=== PATIENT | male | born 1960 | race Caucasian/White ===

== ENCOUNTER 2018-11-05 13:22 | Inpatient (IN) | payer OTHER ==
[2018-11-05] VITALS (10 sets, daily range): BP systolic 98–126; BP diastolic 70–81; PULSE 68–85; RESP 13–20; Ht 182.9 cm; Wt 113.6 kg
[~2018-11-05] VITALS: Ht 182.9 cm; Wt 113.6 kg
[~2018-11-05 13:22] MED LIST: ASPI-903 PO; ATOR20TA38 PO; BENA5TAB33 PO; CLOP75TA27 PO; ERGO500014 PO; ESOM20CA PO; LORA-441 PO; METO-407 PO; OMEP20CA16 PO; TERA5CAP3 PO
[2018-11-05] MEDS ORDERED: NITROGLYCERIN 2% 1 GM OINT PKT TD STA (13:26)
[2018-11-05] MEDS ORDERED: NITROGLYCERIN (SL) 0.4 MG TAB SL PRN ×2 (13:30→15:00)
[2018-11-05] MEDS ORDERED: HEPARIN 1000 UNITS/ML 10 ML INJ IV STA (13:30)
[2018-11-05] MEDS ORDERED: IODIXANOL LOCM 100 ML BTL ONE (13:40)
[2018-11-05] MEDS ORDERED: IOHEXOL 350MG/ML 50 ML BTL ONE (13:40)
[2018-11-05] MEDS ORDERED: HEPARIN 1000 UNITS/ML 10 ML INJ ONE (13:40)
[2018-11-05] MEDS ORDERED: LIDOCAINE 1% (MDV) 20 ML INJ ONE (13:40)
[2018-11-05] MEDS ORDERED: MIDAZOLAM 1 MG/ML 2 ML INJ ONE (13:41)
[2018-11-05] MEDS ORDERED: FENTAnyl 50 MCG/ML VIAL ONE (13:41)
[2018-11-05] MEDS ORDERED: VERAPAMIL 5 MG INJ ONE ×2 (13:41→13:51)
[2018-11-05] MEDS ORDERED: NITROGLYCERIN (IC) 100 MCG/ML INJ ONE (13:41)
--- NOTE | 2018-11-05 13:52 | CONS ---
Consultation Date/Type/Reason Admit Date/Time Date of Consultation: Nov 05, 2018 Type of Consult Cardiology Reason for Consultation vt cardiac arrest Requesting Provider: NEIL MILLER MD Date/Time of Note DATE: 11/05/18 TIME: 13:51 Hx of Present Illness Patient presented with V. tach cardiac arrest. Successfully cardioverted. Patient has had complaint of chest pain prior to the event. Patient continues to have chest pain has severe urinary artery disease. Plan for emergent left heart catheter and coronary angiography possible percutaneous core intervention. His pain is nontender pressure discussed with the patient and multiple family members at detail. Risks including but not limited to risk of infection vascular complication bleeding, leakage MD stroke arrhythmia renal failure etc. discussed with him. Consent has been obtained Full note after procedure Past Medical History Home Meds Reported Medications Lorazepam* (Lorazepam*) 0.5 Mg Tablet, 0.5 MG PO NEEDED, TAB 11/05/18 Ergocalciferol (Vitamin D2) (VITAMIN D2) 50,000 Unit Capsule, 91719 UNIT PO Q15 D, CAP LAST TAKEN 10/24/18 11/05/18 Clopidogrel Bisulfate* (Clopidogrel Bisulfate*) 75 Mg Tablet, 75 MG PO DAILY, #30 TAB 11/05/18 Benazepril Hcl* (Benazepril Hcl*) 20 Mg Tablet, 20 MG PO DAILY, #30 TAB 11/05/18 Tamsulosin Hcl* (Flomax*) 0.4 Mg Cap.er.24h, 0.4 MG PO DAILY, CAP 11/05/18 Atorvastatin Calcium* (Atorvastatin Calcium*) 20 Mg Tablet, 20 MG PO QHS, #30 TAB 11/05/18 Metoprolol Tartrate* (Lopressor*) 100 Mg Tablet, 100 MG PO BID, #60 TAB 11/05/18 Zolpidem Tartrate* (Ambien*) 5 Mg Tablet, 5 MG PO QHS PRN for NEEDED, #30 TAB 11/05/18 Dexlansoprazole (Dexilant) 30 Mg Cap., 30 MG PO NEEDED, #30 CAP 11/05/18 Aspirin* (Aspirin* EC) 81 Mg Tablet., 81 MG PO DAILY, TAB 11/05/18 Discontinued Reported Medications Metoprolol Tartrate* (Lopressor*) 100 Mg Tablet, 100 MG PO BID, TAB 05/07/15 Ergocalciferol* (Drisdol* (Vitamin D2)) 50,000 Unit Capsule, 32641 UNIT PO Q14 DAYS, CAP 05/07/15 Esomeprazole Mag Trihydrate (Nexium) 20 Mg Capsule.dr, 20 MG PO DAILY, CAP 05/07/15 Omeprazole* (Omeprazole*) 20 Mg Capsule.dr, 20 MG PO DAILY, CAP 05/07/15 Lorazepam* (Ativan*) 0.5 Mg Tablet, 0.5 MG PO HS PRN for ANXIETY, TAB 05/07/15 Terazosin Hcl* (Terazosin Hcl*) 5 Mg Capsule, 5 MG PO HS, CAP 04/01/15 Benazepril Hcl* (Benazepril Hcl*) 5 Mg Tablet, 5 MG PO DAILY, TAB 04/01/15 Aspirin* (Aspirin* Chew) 81 Mg Tab.chew, 81 MG PO DAILY, TAB.CHEW 04/01/15 Discontinued Scripts Atorvastatin Calcium* (Atorvastatin Calcium*) 20 Mg Tab, 40 MG PO DAILY@21 for 30 Days, 3 Refills Prov:Jonnie London DO 05/08/15 Clopidogrel Bisulfate (Clopidogrel) 75 Mg Tab, 75 MG PO DAILY, #30 CAP 1 Refill Prov:Jonnie London DO 04/02/15 Medications Current Medications Nitroglycerin (Nitroglycerin (Sl Tab) 0.4 Mg) 1 tab Q5M UP TO 3 DOSES PRN SL .CHEST PAIN; Start 11/05/18 at 13:30 Allergies: Coded Allergies: No Known Allergy (Unverified , 11/05/18) Social History Smoking Status: Former smoker Exam/Review of Systems Vital Signs Vitals Vital Signs Date Temp Pulse Resp B/P (MAP) Pulse Ox O2 O2 Flow FiO2 Time Delivery Rate 11/05/18 Nasal 2 13:25 Cannula 11/05/18 98.7 104 20 118/71 100 13:25 (87) Labs Result Diagram: 11/05/18 1325 Results 24hrs Laboratory Tests Test 11/05/18 13:25 White Blood Count 8.7 Red Blood Count 4.66 L Hemoglobin 13.1 L Hematocrit 40.7 L Mean Corpuscular Volume 87.3 Mean Corpuscular Hemoglobin 28.1 L Mean Corpuscular Hemoglobin Concent 32.2 Red Cell Distribution Width 13.2 Platelet Count 195 Mean Platelet Volume 10.9 H Immature Granulocytes % 0.100 Neutrophils % 77.2 H Lymphocytes % 17.7 Monocytes % 4.0 Eosinophils % 0.7 Basophils % 0.3 Nucleated Red Blood Cells % 0.0 Immature Granulocytes # 0.010 Neutrophils # 6.7 Lymphocytes # 1.5 Monocytes # 0.4 Eosinophils # 0.1 Basophils # 0.0 Nucleated Red Blood Cells # 0.0 Medications Medications Current Medications Nitroglycerin (Nitroglycerin (Sl Tab) 0.4 Mg) 1 tab Q5M UP TO 3 DOSES PRN SL .CHEST PAIN; Start 11/05/18 at 13:30 TRUDY BENITEZ MD Nov 05, 2018 13:52
[2018-11-05] MEDS ORDERED: ASPI-817 PO (13:56)
[2018-11-05] MEDS ORDERED: DEXL30CA2 PO (13:56)
[2018-11-05] MEDS ORDERED: ZOLP5TAB PO (13:57)
[2018-11-05] MEDS ORDERED: ATOR20TA38 PO (13:58)
[2018-11-05] MEDS ORDERED: METO-407 PO (13:58)
[2018-11-05] MEDS ORDERED: BENA20TA4 PO (13:59)
[2018-11-05] MEDS ORDERED: TAMS-14 PO (13:59)
[2018-11-05] MEDS ORDERED: CLOP75TA19 PO (14:00)
[2018-11-05] MEDS ORDERED: ERGO500013 PO (14:02)
[2018-11-05] MEDS ORDERED: LORA0.5T PO (14:05)
[2018-11-05] MEDS ORDERED: BIVALIRUDIN 250MG /NS 50 ML 50 ML IVPB ONE (14:16)
--- NOTE | 2018-11-05 14:28 | ERD ---
ER Documentation Chief Complaint Chief Complaint CP & SOB; BIBA WITH EKG READING STEMI HPI Patient is a 58-year-old male with coronary disease and hypertension who presents with chest pain. The patient was brought in by ambulance. Per the paramedics he had SVT in the field and was given 6 mg and then 12 mg of adenosine which did not convert his SVT. They then shocked him at 50 J in the 100 J which did convert into a sinus rhythm. Post diversion EKG showed STEMI from the field. He said the chest pain started 30 to 40 minutes ago. He has midsternal chest pain. He was given aspirin and nitroglycerin by paramedics. His primary doctor Dr. Padilla and his rack puncher is Dr. Heath. ROS All systems reviewed and are negative except as per history of present illness. Medications Home Meds Reported Medications Lorazepam* (Lorazepam*) 0.5 Mg Tablet, 0.5 MG PO NEEDED, TAB 11/05/18 Ergocalciferol (Vitamin D2) (VITAMIN D2) 50,000 Unit Capsule, 57257 UNIT PO Q15 D, CAP LAST TAKEN 10/24/18 11/05/18 Clopidogrel Bisulfate* (Clopidogrel Bisulfate*) 75 Mg Tablet, 75 MG PO DAILY, #30 TAB 11/05/18 Benazepril Hcl* (Benazepril Hcl*) 20 Mg Tablet, 20 MG PO DAILY, #30 TAB 11/05/18 Tamsulosin Hcl* (Flomax*) 0.4 Mg Cap.er.24h, 0.4 MG PO DAILY, CAP 11/05/18 Atorvastatin Calcium* (Atorvastatin Calcium*) 20 Mg Tablet, 20 MG PO QHS, #30 TAB 11/05/18 Metoprolol Tartrate* (Lopressor*) 100 Mg Tablet, 100 MG PO BID, #60 TAB 11/05/18 Zolpidem Tartrate* (Ambien*) 5 Mg Tablet, 5 MG PO QHS PRN for NEEDED, #30 TAB 11/05/18 Dexlansoprazole (Dexilant) 30 Mg Cap., 30 MG PO NEEDED, #30 CAP 11/05/18 Aspirin* (Aspirin* EC) 81 Mg Tablet.dr, 81 MG PO DAILY, TAB 11/05/18 Discontinued Reported Medications Metoprolol Tartrate* (Lopressor*) 100 Mg Tablet, 100 MG PO BID, TAB 05/07/15 Ergocalciferol* (Drisdol* (Vitamin D2)) 50,000 Unit Capsule, 61573 UNIT PO Q14 DAYS, CAP 05/07/15 Esomeprazole Mag Trihydrate (Nexium) 20 Mg Capsule.dr, 20 MG PO DAILY, CAP 05/07/15 Omeprazole* (Omeprazole*) 20 Mg Capsule.dr, 20 MG PO DAILY, CAP 05/07/15 Lorazepam* (Ativan*) 0.5 Mg Tablet, 0.5 MG PO HS PRN for ANXIETY, TAB 05/07/15 Terazosin Hcl* (Terazosin Hcl*) 5 Mg Capsule, 5 MG PO HS, CAP 04/01/15 Benazepril Hcl* (Benazepril Hcl*) 5 Mg Tablet, 5 MG PO DAILY, TAB 04/01/15 Aspirin* (Aspirin* Chew) 81 Mg Tab.chew, 81 MG PO DAILY, TAB.CHEW 04/01/15 Discontinued Scripts Atorvastatin Calcium* (Atorvastatin Calcium*) 20 Mg Tab, 40 MG PO DAILY@21 for 30 Days, 3 Refills Prov:Jonnie London DO 05/08/15 Clopidogrel Bisulfate (Clopidogrel) 75 Mg Tab, 75 MG PO DAILY, #30 CAP 1 Refill Prov:Jonnie London DO 04/02/15 Allergies Allergies: Coded Allergies: No Known Allergy (Unverified , 11/05/18) PMhx/Soc History of Surgery: Yes (STENT PLACEMENT 2010, 2014 ) Anesthesia Reaction: No Hx Neurological Disorder: No Hx Respiratory Disorders: No Hx Cardiac Disorders: Yes (PA 2010, HTN, HIGH CHOLESTEROL) Hx Psychiatric Problems: No Hx Miscellaneous Medical Probl: No Hx Alcohol Use: Yes (OCCASIONAL) Hx Substance Use: No Hx Tobacco Use: No Smoking Status: Former smoker FmHx Family History: coronary disease Physical Exam Vitals Vital Signs Date Temp Pulse Resp B/P (MAP) Pulse Ox O2 O2 Flow FiO2 Time Delivery Rate 11/05/18 Nasal 2 13:25 Cannula 11/05/18 Nasal 2.0 13:25 Cannula 11/05/18 98.7 104 20 118/71 100 13:25 (87) Physical Exam Const: Moderate distress Head: Atraumatic Eyes: Normal Conjunctiva ENT: Normal External Ears, Nose and Mouth. Neck: Full range of motion. No meningismus. Resp: Clear to auscultation bilaterally Cardio: Regular rate and rhythm, no murmurs Abd: Soft, non tender, non distended. Normal bowel sounds Skin: No petechiae or rashes Back: No midline or flank tenderness Ext: No cyanosis, or edema Neur: Awake and alert Psych: Normal Mood and Affect Result Diagram: 11/05/18 1325 11/05/18 1325 Results 24 hrs Laboratory Tests Test 11/05/18 13:25 White Blood Count 8.7 10^3/ul Red Blood Count 4.66 10^6/ul Hemoglobin 13.1 g/dl Hematocrit 40.7 % Mean Corpuscular Volume 87.3 fl Mean Corpuscular Hemoglobin 28.1 pg Mean Corpuscular Hemoglobin Concent 32.2 g/dl Red Cell Distribution Width 13.2 % Platelet Count 195 10^3/UL Mean Platelet Volume 10.9 fl Immature Granulocytes % 0.100 % Neutrophils % 77.2 % Lymphocytes % 17.7 % Monocytes % 4.0 % Eosinophils % 0.7 % Basophils % 0.3 % Nucleated Red Blood Cells % 0.0 /100WBC Immature Granulocytes # 0.010 10^3/ul Neutrophils # 6.7 10^3/ul Lymphocytes # 1.5 10^3/ul Monocytes # 0.4 10^3/ul Eosinophils # 0.1 10^3/ul Basophils # 0.0 10^3/ul Nucleated Red Blood Cells # 0.0 10^3/ul Sodium Level 141 mmol/L Potassium Level 3.5 mmol/L Chloride Level 107 mmol/L Carbon Dioxide Level 22 mmol/L Anion Gap 12 Blood Urea Nitrogen 12 mg/dl Creatinine 1.15 mg/dl Est Glomerular Filtrat Rate mL/min > 60 mL/min Glucose Level 152 mg/dl Calcium Level 9.6 mg/dl Troponin I < 0.012 ng/ml Current Medications Medications Dose Sig/Pérez Start Time Status Last (Trade) Ordered Route PRN Stop Time Admin Dose Reason Admin 1 inch ONCE STAT 11/05/18 DC 11/05/18 Nitroglycerin TD 13:26 13:37 11/05/18 13:27 (Nitroglyceri n 2% Oint) 1 tab Q5M UP TO 3 11/05/18 Nitroglycerin DOSES PRN 13:30 SL .CHEST (Nitroglyceri PAIN n (Sl Tab) 0.4 Mg) Heparin 5,000 unit ONCE STAT 11/05/18 DC 11/05/18 Sodium IV 13:30 13:48 (Porcine) 11/05/18 13:32 (Heparin (1000 Units/ml)) Heparin 10,000 unit STK-MED 11/05/18 DC Sodium ONCE .ROUTE 13:40 (Porcine) 11/05/18 13:41 (Heparin (1000 Units/ml)) Lidocaine 20 ml STK-MED 11/05/18 DC (Xylocaine ONCE .ROUTE 13:40 1% (Mdv) 20 11/05/18 13:41 ml) Iohexol 50 ml STK-MED 11/05/18 DC (Omnipaque ONCE .ROUTE 13:40 350mg/ ml) 11/05/18 13:41 Iodixanol 100 ml STK-MED 11/05/18 DC (Visipaque ONCE .ROUTE 13:40 Locm) 11/05/18 13:41 Heparin 1,500 ml @ STK-MED 11/05/18 DC Sodium/ ud ONCE .ROUTE 13:40 Sodium 11/05/18 13:41 Chloride Midazolam 2 mg STK-MED 11/05/18 DC HCl ONCE .ROUTE 13:41 (Versed) 11/05/18 13:42 Fentanyl 100 mcg STK-MED 11/05/18 DC (Sublimaze) ONCE .ROUTE 13:41 11/05/18 13:42 Verapamil 5 mg STK-MED 11/05/18 DC HCl ONCE .ROUTE 13:41 (Verapamil) 11/05/18 13:42 1,000 mcg STK-MED 11/05/18 DC Nitroglycerin ONCE .ROUTE 13:41 11/05/18 13:42 (Nitroglyceri n (Intracoronar y)) Verapamil 5 mg STK-MED 11/05/18 DC HCl ONCE .ROUTE 13:51 (Verapamil) 11/05/18 13:52 Bivalirudin 50 ml @ ud STK-MED 11/05/18 DC ONCE IVPB 14:16 11/05/18 14:17 Procedures/MDM EKG #1 read by me: Rate/Rhythm: Regular rate and rhythm at a normal rate Intervals: Normal Impression: Elevations across the anterior leads EKG #2 read by me: Rate/Rhythm: Regular rate and rhythm at a normal rate Intervals: Normal Impression: Elevations across the anterior leads X-ray shows cardiomegaly per radiology. Smoking Cessation Therapy: Pt. was lectured for greater than 3 minutes on the health risks of continued smoking and the benefits of cessation. Patient is a 58-year-old male with significant cardiac risk factors who presents as a STEMI. I looked at the and taxi instructor bus trolley EKGs and I believe with a recalling SVT was actually ventricular tachycardia which is why the adenosine did not work and why the cardioversion did work. For this reason I do believe the going directly to the cardiac Sheet Metal Worker Apprentice would be appropriate and a code STEMI was called. Post cardioversion EKG does show mild ST elevations across the anterior leads. The paramedics did not email the EKG so a code STEMI was not called until the patient arrived and I was able to review the EKGs. Here are the important times: 1315call from the field with possible STEMI 1319arrival and code STEMI called 1321Dr. Ronal called back and requested EKGs which I have sent him 1332Dr. Ronal called back and said that he will take the patient to the cardiac Sheet Metal Worker Apprentice [id number] cardiac Sheet Metal Worker Apprentice team arrival at this time 1344still awaiting the cardiac Sheet Metal Worker Apprentice team arrival 1354Cath Lab team is ready for the patient and patient was wheeled from the emergency department to the cardiac Sheet Metal Worker Apprentice Patient did receive aspirin and nitro glycerin by paramedics. I spoke with Dr. Padilla for admission to the intensive care unit following the cardiac cath by Dr. Villeda. Critical Care: Time: 35 minutes excluding all billable procedures. Treatments/Evaluations: Close monitoring and treatment of unstable vital signs, cardiorespiratory, and neurologic status, while maintaining tight balance of fluid, respiratory, and cardiac interventions. Departure Diagnosis: Primary Impression: STEMI (ST elevation myocardial infarction) Involved coronary artery: unspecified coronary artery Qualified Codes: I21.3 - ST elevation (STEMI) myocardial infarction of unspecified site Additional Impression: V-tach Condition: Critical DONNIE CASAS MD Nov 05, 2018 14:27
[2018-11-05] MEDS ORDERED: SOD CHLORIDE 0.9% 1,000 ML IV SCH (14:40)
[2018-11-05] MEDS ORDERED: POTASSIUM CHLORIDE (SR) 20 MEQ TAB PO STA (14:45)
[2018-11-05] MEDS ORDERED: MAGNESIUM SULFATE 2 GM/50 ML 50 ML IVPB ONE (15:00)
[2018-11-05] MEDS ORDERED: morphine 2 MG INJ IV PRN (15:00)
[2018-11-05] MEDS ORDERED: OXYCODONE/ACETAMINOPHEN (5/325) TAB PO PRN (15:00)
[2018-11-05] MEDS ORDERED: ACETAMINOPHEN 325 MG TAB PO PRN (15:00)
[2018-11-05] MEDS ORDERED: AMIODARONE 900 MG in DEXTROSE 5% 482 ML IV SCH (15:30)
[2018-11-05] MEDS ORDERED: AMIODARONE 150MG/D5W BOLUS 100 ML IV ONE (15:30)
--- NOTE | 2018-11-05 16:09 | CONS ---
Assessment/Plan Assessment/Plan Hospital Course (Demo Recall) 1. Symptomatic sustained ventricular tachycardia requiring emergent cardioversion 2. Coronary artery disease 3. Status post monotype keyboard operator: Trudy Villeda MD 4. History of PCI 5. Diabetes 6. Dyslipidemia 7. Likely obstructive sleep apnea 8. Obesity 9. Severe ischemic cardiomyopathy Recommendations: We will continue with the aspirin I will start the patient amiodarone drip overnight. Continue with TESSA inhibitor We will switch the metoprolol to carvedilol given his LV dysfunction Echocardiogram will be repeated Statin will be continued Cardiac enzymes will be repeated We will continue to closely monitor in the ICU at least overnight Extra potassium will be given. Magnesium will be given as well empirically Patient would need to have an ICD prior to the discharge. Most likely on Wednesday More than 45 minutes critical care time was in management treatment is critically ill patient excluding any procedures Thank you for his referral. We will continue to follow along with you TRUDY VILLEDA MD [facility] Consultation Date/Type/Reason Admit Date/Time Date of Consultation: Nov 05, 2018 Type of Consult Cardiology Reason for Consultation V. tach cardiac arrest possible ST elevation ME Requesting Provider: DONNIE CASAS MD Date/Time of Note DATE: 11/05/18 TIME: 16:00 Hx of Present Illness Emergent interventional cardiology consultation note Chief complaint: Chest pain Reason for consult: Chest pain and V. tach cardiac arrest. Possible ST elevation ME History of present illness: Thank you for this referral. History was obtained from the patient from discussion multiple family members at the bedside discussion with patient's primary care physician Dr. Roque on. Discussion with the ER physician and staff. From review of the old chart This is a 58-year-old Turk[place] gentleman with history of coronary artery disease, status of multiple PCI including most recently history of PCI of his chronic total occluded LAD in 2014, who was in DMV today when suddenly complained of severe chest pain. Paramedics arrived patient was in wide-complex tachycardia. Review of the EKG showed patient was in ventricular tachycardia. Adenosine was given by paramedics we know how the patient had to be cardioverted back to sinus. Patient EKG post arrest showed minimal ST elevation in the anterolateral lead. Code STEMI was activated I was consulted and immediately arrived to the bedside. Patient was still complaining of chest pain. however he has remained in sinus rhythm. Given significant past cardiac history and history of coronary artery disease patient was evaluated immediately and taken to the cardiac catheterization lab for emergent left heart cath and coronary angiography after risks and alternatives were discussed with the patient and multiple family were at the bedside. Coronary angiography fortunately shows patent previous stents. However angiogram showed severe LV dysfunction Patient is currently in the ICU has been placed on amiodarone drip Allergies: No known drug allergies Medications were reviewed as per medical reconciliation sheet Family history: Brother with ME Social history: Quit smoking after his heart attack many years ago Past medical history: Coronary artery disease status post ME 7 multiple PCI. Most recently had a PCI complex PCI of his left anterior descending artery using drug-eluting stents in 2014 Diabetes, hypertension, morbid obesity and possible obstructive sleep apnea, dyslipidemia Review of system: Patient denies all others except for above-mentioned Past Medical History Home Meds Reported Medications Lorazepam* (Lorazepam*) 0.5 Mg Tablet, 0.5 MG PO NEEDED, TAB 11/05/18 Ergocalciferol (Vitamin D2) (VITAMIN D2) 50,000 Unit Capsule, 89913 UNIT PO Q15 D, CAP LAST TAKEN 10/24/18 11/05/18 Clopidogrel Bisulfate* (Clopidogrel Bisulfate*) 75 Mg Tablet, 75 MG PO DAILY, #30 TAB 11/05/18 Benazepril Hcl* (Benazepril Hcl*) 20 Mg Tablet, 20 MG PO DAILY, #30 TAB 11/05/18 Tamsulosin Hcl* (Flomax*) 0.4 Mg Cap.er.24h, 0.4 MG PO DAILY, CAP 11/05/18 Atorvastatin Calcium* (Atorvastatin Calcium*) 20 Mg Tablet, 20 MG PO QHS, #30 TAB 11/05/18 Metoprolol Tartrate* (Lopressor*) 100 Mg Tablet, 100 MG PO BID, #60 TAB 11/05/18 Zolpidem Tartrate* (Ambien*) 5 Mg Tablet, 5 MG PO QHS PRN for NEEDED, #30 TAB 11/05/18 Dexlansoprazole (Dexilant) 30 Mg Cap., 30 MG PO NEEDED, #30 CAP 11/05/18 Aspirin* (Aspirin* EC) 81 Mg Tablet.dr, 81 MG PO DAILY, TAB 11/05/18 Discontinued Reported Medications Metoprolol Tartrate* (Lopressor*) 100 Mg Tablet, 100 MG PO BID, TAB 05/07/15 Ergocalciferol* (Drisdol* (Vitamin D2)) 50,000 Unit Capsule, 09900 UNIT PO Q14 DAYS, CAP 05/07/15 Esomeprazole Mag Trihydrate (Nexium) 20 Mg Capsule.dr, 20 MG PO DAILY, CAP 05/07/15 Omeprazole* (Omeprazole*) 20 Mg Capsule.dr, 20 MG PO DAILY, CAP 05/07/15 Lorazepam* (Ativan*) 0.5 Mg Tablet, 0.5 MG PO HS PRN for ANXIETY, TAB 05/07/15 Terazosin Hcl* (Terazosin Hcl*) 5 Mg Capsule, 5 MG PO HS, CAP 04/01/15 Benazepril Hcl* (Benazepril Hcl*) 5 Mg Tablet, 5 MG PO DAILY, TAB 04/01/15 Aspirin* (Aspirin* Chew) 81 Mg Tab.chew, 81 MG PO DAILY, TAB.CHEW 04/01/15 Discontinued Scripts Atorvastatin Calcium* (Atorvastatin Calcium*) 20 Mg Tab, 40 MG PO DAILY@21 for 30 Days, 3 Refills Prov:Jonnie London DO 05/08/15 Clopidogrel Bisulfate (Clopidogrel) 75 Mg Tab, 75 MG PO DAILY, #30 CAP 1 Refill Prov:Jonnie London DO 04/02/15 Medications Current Medications Aspirin (Halfprin) 81 mg DAILY PO ; Start 11/06/18 at 09:00 Nitroglycerin (Nitroglycerin (Sl Tab) 0.4 Mg) 1 tab Q5M PRN SL CHEST PAIN; Start 11/05/18 at 15:00 Acetaminophen (Tylenol Tab) 650 mg Q4H PRN PO NON-CARDIAC PAIN LEVEL 1-3; Start 11/05/18 at 15:00 Oxycodone/ Acetaminophen (Percocet (5/ 325)) 1 tab Q4H PRN PO REPORTED NON- CARDIAC PAIN 4-7; Start 11/05/18 at 15:00 Morphine Sulfate (morphine) 1 mg Q1H PRN IV PAIN NOT RELIEVED BY OTHERS; Start 11/05/18 at 15:00 Sodium Chloride 1,000 ml @ 75 mls/hr [id number] IV Last administered on 11/05/18at 15:32; Admin Dose 75 MLS/HR; Start 11/05/18 at 14:40; Stop 11/06/18 at 00:39 Atorvastatin Calcium (Lipitor) 20 mg QHS PO ; Start 11/05/18 at 21:00 Tamsulosin HCl (Flomax) 0.4 mg DAILY@2100 PO ; Start 11/05/18 at 21:00 Miscellaneous Information 30 mg NEEDED PO ; Start 11/05/18 at 15:00; Status UNV Carvedilol (Coreg) 6.25 mg BID PO ; Start 11/05/18 at 21:00 Amiodarone HCl 900 mg/Dextrose 500 ml @ 0 mls/hr Q0M IV ; Start 11/05/18 at 15:30; Stop 11/06/18 at 15:29 Magnesium Sulfate 50 ml @ 25 mls/hr ONCE ONCE IVPB Last administered on 11/05/18at 15:36; Admin Dose 25 MLS/HR; Start 11/05/18 at 15:00; Stop 11/05/18 at 16:59 Benazepril HCl (Lotensin) 20 mg DAILY PO ; Start 11/06/18 at 09:00 Allergies: Coded Allergies: No Known Allergy (Unverified , 11/05/18) Social History Smoking Status: Former smoker Exam/Review of Systems Vital Signs Vitals Vital Signs Date Temp Pulse Resp B/P (MAP) Pulse Ox O2 O2 Flow FiO2 Time Delivery Rate 11/05/18 Nasal 2 13:25 Cannula 11/05/18 98.7 104 20 118/71 100 13:25 (87) Exam Exam General: Obese gentleman currently in no acute distress HEENT: NC/AT. pupils are equal. round. NECK: NO JVD. no stridor. CV: RRR. systolic murmur; no gallop or rubs. PULM: no wheezing or rhonchi. GI: SOFT, NT, ND, no rebound or guarding Extremity: trace B/L LE edema. no clubbing. neuro: awake and alert, OX3. Psych: calm and pleasant rectal: deferred : normal Vascular right femoral status post closure using Perclose EKG done at 1333 showed normal sinus rhythm with anteroseptal infarct. There is minimal ST elevation in the V3 to V5 noted EKG by the concrete mixing truck driver done at 12:54 shows wide complex tachycardia sinus consistent with ventricular tachycardia heart rate of 198 Chest x-ray showed:Mild Cardiomegaly. Labs Result Diagram: 11/05/18 1325 11/05/18 1325 Results 24hrs Laboratory Tests Test 11/05/18 13:25 White Blood Count 8.7 Red Blood Count 4.66 L Hemoglobin 13.1 L Hematocrit 40.7 L Mean Corpuscular Volume 87.3 Mean Corpuscular Hemoglobin 28.1 L Mean Corpuscular Hemoglobin Concent 32.2 Red Cell Distribution Width 13.2 Platelet Count 195 Mean Platelet Volume 10.9 H Immature Granulocytes % 0.100 Neutrophils % 77.2 H Lymphocytes % 17.7 Monocytes % 4.0 Eosinophils % 0.7 Basophils % 0.3 Nucleated Red Blood Cells % 0.0 Immature Granulocytes # 0.010 Neutrophils # 6.7 Lymphocytes # 1.5 Monocytes # 0.4 Eosinophils # 0.1 Basophils # 0.0 Nucleated Red Blood Cells # 0.0 Sodium Level 141 Potassium Level 3.5 Chloride Level 107 Carbon Dioxide Level 22 Anion Gap 12 Blood Urea Nitrogen 12 Creatinine 1.15 Est Glomerular Filtrat Rate mL/min > 60 Glucose Level 152 Calcium Level 9.6 Troponin I < 0.012 Medications Medications Current Medications Aspirin (Halfprin) 81 mg DAILY PO ; Start 11/06/18 at 09:00 Nitroglycerin (Nitroglycerin (Sl Tab) 0.4 Mg) 1 tab Q5M PRN SL CHEST PAIN; Start 11/05/18 at 15:00 Acetaminophen (Tylenol Tab) 650 mg Q4H PRN PO NON-CARDIAC PAIN LEVEL 1-3; Start 11/05/18 at 15:00 Oxycodone/ Acetaminophen (Percocet (5/ 325)) 1 tab Q4H PRN PO REPORTED NON- CARDIAC PAIN 4-7; Start 11/05/18 at 15:00 Morphine Sulfate (morphine) 1 mg Q1H PRN IV PAIN NOT RELIEVED BY OTHERS; Start 11/05/18 at 15:00 Sodium Chloride 1,000 ml @ 75 mls/hr [id number] IV Last administered on 11/05/18at 15:32; Admin Dose 75 MLS/HR; Start 11/05/18 at 14:40; Stop 11/06/18 at 00:39 Atorvastatin Calcium (Lipitor) 20 mg QHS PO ; Start 11/05/18 at 21:00 Tamsulosin HCl (Flomax) 0.4 mg DAILY@2100 PO ; Start 11/05/18 at 21:00 Miscellaneous Information 30 mg NEEDED PO ; Start 11/05/18 at 15:00; Status UNV Carvedilol (Coreg) 6.25 mg BID PO ; Start 11/05/18 at 21:00 Amiodarone HCl 900 mg/Dextrose 500 ml @ 0 mls/hr Q0M IV ; Start 11/05/18 at 15:30; Stop 11/06/18 at 15:29 Magnesium Sulfate 50 ml @ 25 mls/hr ONCE ONCE IVPB Last administered on 11/05/18at 15:36; Admin Dose 25 MLS/HR; Start 11/05/18 at 15:00; Stop 11/05/18 at 16:59 Benazepril HCl (Lotensin) 20 mg DAILY PO ; Start 11/06/18 at 09:00 TRUDY VILLEDA MD Nov 05, 2018 16:09
--- NOTE | 2018-11-05 16:11 | OPR ---
Date/Time of Note Date/Time of Note DATE: 11/05/18 TIME: 16:09 Operative Report Procedure Date: Nov 05, 2018 Preoperative Diagnosis V. tach cardiac arrest. Possible ST elevation OH. Ongoing chest pain Postoperative Diagnosis V. tach cardiac arrest. Possible ST elevation OH. Ongoing chest pain Operation/Procedure Performed Left heart catheterization coronary angiogram Surgeon see signature line Batt Packer Juan Anesthesia Type: moderate sedation Estimated Blood Loss: minimal Transfusion none Specimen None Grafts/Implants none Complications none Procedure Description Rn Office: Wally Villeda MD Indication: 58-year-old gentleman with history of coronary artery disease status post OH status with multiple PCI most recent in 2014 with Plavix PCI of his[] Procure performed: #1 Emergent left heart catheterization and selective right and left coronary angiogram #2 Right femoral angiogram and closure using a Perclose device 3. Moderate sedation for more than 30 minutes Findings: 1. Left main: is short and basically do all ostium 2. LAD: has 20 % stenosis at proximal LAD, . Mid LAD stent is widely patent. Second diagonal ostial is jailed by the LAD stent but no significant change from previous study. 3. Left circumflex artery: is condominant. it has 20 % stenosis 4. RCA: is cool dominant. it has 20 % stenosis 5. LV gram showed dilated left ventricle with ejection fraction of probably about 25%. LVEDP is about 8 with about 10 mm gradient across aortic valve Procedure in detail: Written informed consent with obtained after risks benefits and alternatives discussed with the patient in detail. risks including but not limited to risk of infection vascular complications, bleeding complications, OH stroke arrhythmia renal failure at even were discussed with the patient in detail. Patient was brought into the cardiac solder making laborer and placed in supine position. Right and left groin area was prepped and draped in regular sterile fashion and then he was in anesthetized using 1% lidocaine. Right femoral artery was cannulated and using modified seldinger technique a 7 Ukrainian sheath was placed in the femoral artery. JR4 catheter was advanced and engaged into the right coronary artery and angiographic view was obtained. Then a every 4 7 Ukrainian catheter was advanced into the main coronary artery angiography was obtained. Then a pigtail was advanced to engage the left ventricle hemodynamics as recorded by pullback aortic pressure was measured. LV gram was performed Femoral angiogram was performed and perclose was successfully deployed. Patient tolerated the procedure well with no complication. Patient was transferred to ICU in stable condition. contrast used: 75 visipaque Conclusions: Coronary angiography showed patent previous stent but severe LV dysfunction Recommendations: Aggressive medical therapy. aspirin indefinitely ICU care overnight. We will start the patient amiodarone drip. Patient would need to have an ICD pr ior to discharge WALLY VILLEDA MD [facility] WALLY VILLEDA MD Nov 05, 2018 16:11
[2018-11-05] MEDS: ATORVASTATIN 20 MG TAB PO SCH (21:01)
[2018-11-05] MEDS: TAMSULOSIN (SR) 0.4 MG CAP PO SCH (21:01)
[2018-11-06] VITALS (21 sets, daily range): BP systolic 120–134; BP diastolic 70–88; PULSE 65–89; RESP 12–23
[2018-11-06] MEDS: PANTOPRAZOLE (EC) 40 MG TAB PO SCH (06:18)
[2018-11-06] MEDS: ASPIRIN (EC) 81 MG TAB PO SCH (08:32)
[2018-11-06] MEDS: BENAZEPRIL 10 MG TAB PO SCH (08:32)
[2018-11-06] MEDS ORDERED: BENAZEPRIL 20 MG TAB PO SCH (09:00)
[2018-11-06] MEDS ORDERED: ASPIRIN (EC) 81 MG TAB PO SCH (09:00)
--- NOTE | 2018-11-06 09:57 | RADRPT ---
Echocardiogram Report Patient Name: Red ENCISO ID: [id number] : 1960 (58y 1m)Study Date: 11/06/2018 7:52:11 AM Gender: MAccession #: [id number] Tech: OCTAVIANO Location: Ref.Physician: TRUDY VILLEDA Height(Cm): 168 BSA: 2.05Weight(Kg): 89.8 Quality: AdequateAccount #: Procedures: Echocardiographic Report: Transthoracic echocardiogram with 2D, M-Mode, and Doppler examination, poor subcostal images. Indications: Evaluate Left Ventricular function. Measurements: 2D/M Mode Doppler Measurement Value Normal Range Measurement Value Normal Range LVIDd 2D 6.0 [ 4.2 - 5.8 ] cm AV Peak Nathanael 1.6 [ 100.0 - 170.0 ] cm/se c LVIDs 2D 4.9 [ 2.5 - 4.0 ] cm AV Peak PG 10.0 [ 2.0 - 9.0 ] mmHg LVPWd 2D 1.0 [ 0.6 - 1.0 ] cm LVOT Peak Nathanael 0.7 [ 70.0 - 110.0 ] cm/sec IVSd 2D 0.9 [ 0.6 - 1.0 ] cm LVOT Peak PG 2.0 [ 2.0 - 6.0 ] mmHg AoR Diam 2D 3.6 [ 2.6 - 3.4 ] cm MV E Peak Nathanael 1.2 [ 60.0 - 130.0 ] cm/sec EDV 2D 179.0 [ 62.0 - 150.0 ] ml MV A Peak Nathanael 0.8 [ 100.0 - 120.0 ] cm/se c ESV 2D 111.0 [ 21.0 - 61.0 ] ml MV E/A 1.5 [ 0.8 - 1.5 ] ratio EF 2D 38.0 [ 52.0 - 72.0 ] percent MV PHT 64.0 [ 20.0 - 100.0 ] msec LA Dimen 2D 4.8 [ 3.0 - 4.0 ] cm MV Decel Time 218 [ 104 - 258 ] msec MV Decel Person 5 Lat E` Nathanael 0.1 [ 10.0 - 15.0 ] cm/sec Lateral E/E` 19.4 [ 1.0 - 2.0 ] ratio Med E` Nathanael 0.1 cm/sec MV E/A 1.5 [ 0.8 - 1.5 ] ratio MVA PHT 3.4 [ 2.0 - 4.0 ] cm2 PV Peak Nathanael 1.1 [ 40.0 - 80.0 ] cm/sec PV Peak PG 5.0 mmHg Findings: Left Ventricle: Mild enlargement of left ventricle cavity. Severe left ventricular systolic dysfunction. Ejection fraction is visually estimated at 25-30 %. Tissue Doppler/Mitral Doppler indices are within normal limits. E/E'= 22. These segments of the LV are akinetic mid anterior segment, apical anterior segment, apical lateral segment, inferior mid segment, apical inferior segment and inferoseptum mid segment. Right Ventricle: Normal right ventricular size. Normal right ventricular systolic function. Left Atrium: There is moderate enlargement of left atrium. Right Atrium: The right atrium is normal in size. Atrial Septum: Not well visualized. Mitral Valve: Normal appearance of the mitral valve. Mild mitral valve regurgitation. Aortic Valve: No significant aortic stenosis or insufficiency. Normal trileaflet aortic valve structure. Tricuspid Valve: Normal appearance and function of the tricuspid valve with trace physiologic regurgitation. Pulmonic Valve: Normal pulmonic valve appearance. No evidence of pulmonic regurgitation. Pericardium: Normal pericardium with no significant pericardial effusion. Aorta: There is mild aortic root dilation. IVC: Normal size and normal respiratory collapse consistent with normal right atrial pressure. Pulmonary Artery: Normal pulmonary artery size. Conclusions: Mild enlargement of left ventricle cavity. Severe left ventricular systolic dysfunction. Ejection fraction is visually estimated at 25-30 %. Tissue Doppler/Mitral Doppler indices are within normal limits. E/E'= 22. These segments of the LV are akinetic mid anterior segment, apical anterior segment, apical lateral segment, inferior mid segment, apical inferior segment and inferoseptum mid segment. There is moderate enlargement of left atrium. Normal appearance of the mitral valve. Mild mitral valve regurgitation. n. No significant aortic stenosis or insufficiency. Normal trileaflet aortic valve structure. Normal appearance and function of the tricuspid valve with trace physiologic regurgitation. Electronically Signed By: Trudy Villeda 2018-11-06 09:56:41 PDT
--- NOTE | 2018-11-06 10:11 | CONS ---
Consult Date/Type/Reason Admit Date/Time Nov 05, 2018 at 13:35 Initial Consult Date 11/05/18 Type of Consultation: cv Requesting Provider: DONNIE CASAS MD Date/Time of Note DATE: 11/06/18 TIME: 10:05 Subjective Interventional cardiology follow-up progress note Subjective: Case discussed with the staff and telemetry was reviewed. Patient has remained sinus rhythm with normal episode of ventricular tachycardia. He denies any left-sided chest pain or pressure to me denies any palpitation to me. He has remained on amiodarone drip overnight. No groin pain. Discussed with multiple family members Objective: General: no acute distress HEENT: NC/AT. pupils are equal. round. NECK: NO JVD. no stridor. CV: RRR. systolic murmur; no gallop or rubs. PULM: no wheezing or rhonchi. GI: SOFT, NT, ND, no rebound or guarding Extremity: trace B/L LE edema. no clubbing. neuro: awake and alert, OX3. Psych: calm and pleasant rectal: deferred : normal Echocardiogram was personally reviewed which shows: Mild enlargement of left ventricle cavity. Severe left ventricular systolic dysfunction. Ejection fraction is visually estimated at 25-30 %. Tissue Doppler/Mitral Doppler indices are within normal limits. E/E'= 22. These segments of the LV are akinetic mid anterior segment, apical anterior segment, apical lateral segment, inferior mid segment, apical inferior segment and inferoseptum mid segment. There is moderate enlargement of left atrium. Normal appearance of the mitral valve. Mild mitral valve regurgitation. n. No significant aortic stenosis or insufficiency. Normal trileaflet aortic valve structure. Normal appearance and function of the tricuspid valve with trace physiologic regurgitation. Objective Vitals Vital Signs Date Temp Pulse Resp B/P (MAP) Pulse Ox O2 O2 Flow FiO2 Time Delivery Rate 11/06/18 70 12 132/84 99 09:00 (100) 11/06/18 98.6 Room Air 08:00 11/05/18 2 13:25 Intake and Output 11/05/18 11/05/18 11/06/18 1515:00 23:00 07:00 IntakeIntake Total 1221.4 ml 474.6 ml OutputOutput Total 1300 ml 600 ml BalanceBalance -78.6 ml -125.4 ml Results/Medications Result Diagram: 11/06/18 0515 11/06/18 0515 Results 24 hrs Laboratory Tests Test 11/05/18 13:25 11/05/18 19:29 11/06/18 01:24 11/06/18 05:15 White Blood Count 8.7 9.2 Red Blood Count 4.66 L 4.40 L Hemoglobin 13.1 L 12.5 L Hematocrit 40.7 L 38.1 L Mean Corpuscular 87.3 86.6 Volume Mean Corpuscular 28.1 L 28.4 L Hemoglobin Mean Corpuscular 32.2 32.8 Hemoglobin Concent Red Cell 13.2 13.4 Distribution Width Platelet Count 195 169 Mean Platelet Volume 10.9 H 11.2 H Immature 0.100 0.200 Granulocytes % Neutrophils % 77.2 H 76.3 Lymphocytes % 17.7 15.5 Monocytes % 4.0 6.5 Eosinophils % 0.7 1.1 Basophils % 0.3 0.4 Nucleated Red Blood 0.0 0.0 Cells % Immature 0.010 0.020 Granulocytes # Neutrophils # 6.7 7.0 Lymphocytes # 1.5 1.4 Monocytes # 0.4 0.6 Eosinophils # 0.1 0.1 Basophils # 0.0 0.0 Nucleated Red Blood 0.0 0.0 Cells # Sodium Level 141 142 Potassium Level 3.5 4.3 Chloride Level 107 110 Carbon Dioxide Level 22 25 Anion Gap 12 7 Blood Urea Nitrogen 12 11 Creatinine 1.15 0.86 Est Glomerular > 60 > 60 Filtrat Rate mL/min Glucose Level 152 106 # Calcium Level 9.6 9.3 Troponin I < 0.012 0.823 *H 0.759 *H Creatine Kinase 91 91 Creatine Kinase 4.9 5.3 Index Creatinine Kinase MB 4.47 H 4.78 H (Mass) Magnesium Level 2.2 Total Bilirubin 0.8 Direct Bilirubin 0.00 Indirect Bilirubin 0.8 Aspartate Amino 24 Transf (AST/SGOT) Alanine 34 Aminotransferase (AL T/SGPT) Alkaline Phosphatase 44 B-Type Natriuretic 534 H Peptide Total Protein 6.3 Albumin 3.6 Globulin 2.70 Albumin/Globulin 1.33 Ratio Triglycerides Level 50 Cholesterol Level 81 L LDL Cholesterol, 33 Calculated HDL Cholesterol 38 Cholesterol/HDL 2.1 Ratio Thyroid Stimulating 1.020 Hormone (TSH) Test 11/06/18 05:16 Prothrombin Time 13.4 Prothrombin Time 1.0 Ratio INR International 1.01 Normalized Ratio Creatine Kinase 88 Creatine Kinase 4.5 Index Creatinine Kinase MB 3.94 H (Mass) Troponin I 0.636 *H Free Thyroxine 1.11 Digoxin Level < 0.4 L Home Meds Reported Medications Lorazepam* (Lorazepam*) 0.5 Mg Tablet, 0.5 MG PO NEEDED, TAB 11/05/18 Ergocalciferol (Vitamin D2) (VITAMIN D2) 50,000 Unit Capsule, 88803 UNIT PO Q15 D, CAP LAST TAKEN 10/24/18 11/05/18 Clopidogrel Bisulfate* (Clopidogrel Bisulfate*) 75 Mg Tablet, 75 MG PO DAILY, #30 TAB 11/05/18 Benazepril Hcl* (Benazepril Hcl*) 20 Mg Tablet, 20 MG PO DAILY, #30 TAB 11/05/18 Tamsulosin Hcl* (Flomax*) 0.4 Mg Cap.er.24h, 0.4 MG PO DAILY, CAP 11/05/18 Atorvastatin Calcium* (Atorvastatin Calcium*) 20 Mg Tablet, 20 MG PO QHS, #30 TAB 11/05/18 Metoprolol Tartrate* (Lopressor*) 100 Mg Tablet, 100 MG PO BID, #60 TAB 11/05/18 Zolpidem Tartrate* (Ambien*) 5 Mg Tablet, 5 MG PO QHS PRN for NEEDED, #30 TAB 11/05/18 Dexlansoprazole (Dexilant) 30 Mg Cap., 30 MG PO NEEDED, #30 CAP 11/05/18 Aspirin* (Aspirin* EC) 81 Mg Tablet.dr, 81 MG PO DAILY, TAB 11/05/18 Discontinued Reported Medications Metoprolol Tartrate* (Lopressor*) 100 Mg Tablet, 100 MG PO BID, TAB 05/07/15 Ergocalciferol* (Drisdol* (Vitamin D2)) 50,000 Unit Capsule, 76344 UNIT PO Q14 DAYS, CAP 05/07/15 Esomeprazole Mag Trihydrate (Nexium) 20 Mg Capsule.dr, 20 MG PO DAILY, CAP 05/07/15 Omeprazole* (Omeprazole*) 20 Mg Capsule.dr, 20 MG PO DAILY, CAP 05/07/15 Lorazepam* (Ativan*) 0.5 Mg Tablet, 0.5 MG PO HS PRN for ANXIETY, TAB 05/07/15 Terazosin Hcl* (Terazosin Hcl*) 5 Mg Capsule, 5 MG PO HS, CAP 04/01/15 Benazepril Hcl* (Benazepril Hcl*) 5 Mg Tablet, 5 MG PO DAILY, TAB 04/01/15 Aspirin* (Aspirin* Chew) 81 Mg Tab.chew, 81 MG PO DAILY, TAB.CHEW 04/01/15 Discontinued Scripts Atorvastatin Calcium* (Atorvastatin Calcium*) 20 Mg Tab, 40 MG PO DAILY@21 for 30 Days, 3 Refills Prov:Jonnie London DO 05/08/15 Clopidogrel Bisulfate (Clopidogrel) 75 Mg Tab, 75 MG PO DAILY, #30 CAP 1 Refill Prov:Jonnie London DO 04/02/15 Medications Current Medications Aspirin (Halfprin) 81 mg DAILY PO Last administered on 11/06/18at 08:32; Admin Dose 81 MG; Start 11/06/18 at 09:00 Nitroglycerin (Nitroglycerin (Sl Tab) 0.4 Mg) 1 tab Q5M PRN SL CHEST PAIN; Start 11/05/18 at 15:00 Acetaminophen (Tylenol Tab) 650 mg Q4H PRN PO NON-CARDIAC PAIN LEVEL 1-3; Start 11/05/18 at 15:00 Oxycodone/ Acetaminophen (Percocet (5/ 325)) 1 tab Q4H PRN PO REPORTED NON- CARDIAC PAIN 4-7; Start 11/05/18 at 15:00 Morphine Sulfate (morphine) 1 mg Q1H PRN IV PAIN NOT RELIEVED BY OTHERS; Start 11/05/18 at 15:00 Atorvastatin Calcium (Lipitor) 20 mg QHS PO Last administered on 11/05/18at 21:01; Admin Dose 20 MG; Start 11/05/18 at 21:00 Tamsulosin HCl (Flomax) 0.4 mg DAILY@2100 PO Last administered on 11/05/18at 21:01; Admin Dose 0.4 MG; Start 11/05/18 at 21:00 Pantoprazole (Protonix Tab) 40 mg DAILY@06 PO Last administered on 11/06/18at 06:18; Admin Dose 40 MG; Start 11/06/18 at 06:00 Carvedilol (Coreg) 6.25 mg BID PO Last administered on 11/06/18at 08:33; Admin Dose 6.25 MG; Start 11/05/18 at 21:00 Amiodarone HCl 900 mg/Dextrose 500 ml @ 0 mls/hr Q0M IV Last administered on 11/05/18at 16:33; Admin Dose 0 MLS/HR; Start 11/05/18 at 15:30; Stop 11/06/18 at 15:29 Benazepril HCl (Lotensin) 20 mg DAILY PO Last administered on 11/06/18at 08:32; Admin Dose 20 MG; Start 11/06/18 at 09:00 Assessment/Plan Hospital Course (Demo Recall) 1. Symptomatic sustained ventricular tachycardia requiring emergent cardioversion 2. Coronary artery disease with history of multiple PCI 3. CHF: chronic and stable 4. History of PCI 5. Diabetes 6. Dyslipidemia 7. Likely obstructive sleep apnea 8. Obesity 9. Severe ischemic cardiomyopathy Recommendations: We will continue with the aspirin I will stop the patient amiodarone drip overnight. Continue with TESSA inhibitor inc carvedilol as tolerated Echocardiogram was reviewed which confirmed severe LV dysfunction Statin will be continued Cardiac enzymes will be repeated We will continue to closely monitor in the ICU at least overnight Patient would need to have an ICD prior to the discharge. Most likely on Wednesday Risks benefits alternative ICD placement in the fibrillator threshold testing was discussed with the patient in detail. Risks including but not limited to risk of infection vascular complication pneumothorax hemothorax perforation anesthesia related complication NH stroke arrhythmia etc. I discussed with the patient. Patient consented to procedure. More than 35 minutes critical care time was in management treatment is critically ill patient excluding any procedures Thank you for his referral. We will continue to follow along with you TRUDY BENITEZ MD [facility] TRUDY BENITEZ MD Nov 06, 2018 10:11
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
[2018-11-06] MEDS: TAMSULOSIN (SR) 0.4 MG CAP PO SCH (20:37)
[2018-11-06] MEDS: ATORVASTATIN 20 MG TAB PO SCH (20:38)
[2018-11-07] VITALS (24 sets, daily range): BP systolic 104–128; BP diastolic 55–79; PULSE 71–97; RESP 14–20
--- NOTE | 2018-11-07 01:06 | RADRPT ---
Vent Rate: 77 bpm RR Interval: 784 msec AK Interval: 177 msec QRS Duration: 107 msec QT Interval: 379 msec QTC Interval: 428 msec P-R-T [place]: 58 - -54 - 70 degrees Sinus rhythm...normal P axis, V-rate 50- 99 Inferior infarct, old...Q >35mS, II III aVF Anterior infarct, recent...Q >30mS, ST >0.15mV, T neg, V2-V5 Electronically Signed By: Víctor Archuleta
[2018-11-07] MEDS: PANTOPRAZOLE (EC) 40 MG TAB PO SCH (06:13)
[2018-11-07] MEDS: SOD CHLORIDE 0.9% 1,000 ML IV SCH ×2 (06:18→18:33)
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
[2018-11-07] MEDS ORDERED: CEFAZOLIN 2 GM/50 ML (PMX) 50 ML IVPB SCH (14:34)
[2018-11-07] MEDS ORDERED: POLYMYXIN/BACITRACIN 1L IRRIG IRR SCH (14:34)
--- NOTE | 2018-11-07 15:00 | PREAC ---
Date/Time of Note Date/Time of Note DATE: 11/07/18 TIME: 14:57 Anesthesia Eval and Record Evaluation Time Pre-Procedure Interview DATE: 11/07/18 TIME: 14:57 Age 58 Sex male NPO: 8 hrs Preoperative diagnosis heart failure, V tach Planned procedure AICD placement Past Medical History Past Medical History: Includes Cardio: Dyslipidemia, ID, CAD, PTCA/Stent (EF 25-30%) GI: GERD, Obesity Surgery & Anesthesia Issues No known issue Meds Anticoagulation: No Beta Rima within 24 hr: No Reason Beta Rima not given: Pt. not on B-Rima Reported Medications Lorazepam* (Lorazepam*) 0.5 Mg Tablet, 0.5 MG PO NEEDED, TAB 11/05/18 Ergocalciferol (Vitamin D2) (VITAMIN D2) 50,000 Unit Capsule, 06946 UNIT PO Q15 D, CAP LAST TAKEN 10/24/18 11/05/18 Clopidogrel Bisulfate* (Clopidogrel Bisulfate*) 75 Mg Tablet, 75 MG PO DAILY, #30 TAB 11/05/18 Benazepril Hcl* (Benazepril Hcl*) 20 Mg Tablet, 20 MG PO DAILY, #30 TAB 11/05/18 Tamsulosin Hcl* (Flomax*) 0.4 Mg Cap.er.24h, 0.4 MG PO DAILY, CAP 11/05/18 Atorvastatin Calcium* (Atorvastatin Calcium*) 20 Mg Tablet, 20 MG PO QHS, #30 TAB 11/05/18 Metoprolol Tartrate* (Lopressor*) 100 Mg Tablet, 100 MG PO BID, #60 TAB 11/05/18 Zolpidem Tartrate* (Ambien*) 5 Mg Tablet, 5 MG PO QHS PRN for NEEDED, #30 TAB 11/05/18 Dexlansoprazole (Dexilant) 30 Mg Cap., 30 MG PO NEEDED, #30 CAP 11/05/18 Aspirin* (Aspirin* EC) 81 Mg Tablet., 81 MG PO DAILY, TAB 11/05/18 Discontinued Reported Medications Metoprolol Tartrate* (Lopressor*) 100 Mg Tablet, 100 MG PO BID, TAB 05/07/15 Ergocalciferol* (Drisdol* (Vitamin D2)) 50,000 Unit Capsule, 59673 UNIT PO Q14 DAYS, CAP 05/07/15 Esomeprazole Mag Trihydrate (Nexium) 20 Mg Capsule.dr, 20 MG PO DAILY, CAP 05/07/15 Omeprazole* (Omeprazole*) 20 Mg Capsule.dr, 20 MG PO DAILY, CAP 05/07/15 Lorazepam* (Ativan*) 0.5 Mg Tablet, 0.5 MG PO HS PRN for ANXIETY, TAB 05/07/15 Terazosin Hcl* (Terazosin Hcl*) 5 Mg Capsule, 5 MG PO HS, CAP 04/01/15 Benazepril Hcl* (Benazepril Hcl*) 5 Mg Tablet, 5 MG PO DAILY, TAB 04/01/15 Aspirin* (Aspirin* Chew) 81 Mg Tab.chew, 81 MG PO DAILY, TAB.CHEW 04/01/15 Discontinued Scripts Atorvastatin Calcium* (Atorvastatin Calcium*) 20 Mg Tab, 40 MG PO DAILY@21 for 30 Days, 3 Refills Prov:Jonnie London DO 05/08/15 Clopidogrel Bisulfate (Clopidogrel) 75 Mg Tab, 75 MG PO DAILY, #30 CAP 1 Refill Prov:Jonnie London DO 04/02/15 Current Medications Aspirin (Halfprin) 81 mg DAILY PO Last administered on 11/06/18at 08:32; Admin Dose 81 MG; Start 11/06/18 at 09:00 Nitroglycerin (Nitroglycerin (Sl Tab) 0.4 Mg) 1 tab Q5M PRN SL CHEST PAIN; Start 11/05/18 at 15:00 Acetaminophen (Tylenol Tab) 650 mg Q4H PRN PO NON-CARDIAC PAIN LEVEL 1-3; Start 11/05/18 at 15:00 Oxycodone/ Acetaminophen (Percocet (5/ 325)) 1 tab Q4H PRN PO REPORTED NON- CARDIAC PAIN 4-7; Start 11/05/18 at 15:00 Morphine Sulfate (morphine) 1 mg Q1H PRN IV PAIN NOT RELIEVED BY OTHERS; Start 11/05/18 at 15:00 Atorvastatin Calcium (Lipitor) 20 mg QHS PO Last administered on 11/06/18at 20:38; Admin Dose 20 MG; Start 11/05/18 at 21:00 Tamsulosin HCl (Flomax) 0.4 mg DAILY@2100 PO Last administered on 11/06/18at 20:37; Admin Dose 0.4 MG; Start 11/05/18 at 21:00 Pantoprazole (Protonix Tab) 40 mg DAILY@06 PO Last administered on 11/07/18at 06:13; Admin Dose 40 MG; Start 11/06/18 at 06:00 Benazepril HCl (Lotensin) 20 mg DAILY PO Last administered on 11/06/18at 08:32; Admin Dose 20 MG; Start 11/06/18 at 09:00 Carvedilol (Coreg) 6.25 mg TID PO Last administered on 11/06/18at 20:37; Admin Dose 6.25 MG; Start 11/06/18 at 13:00 Sodium Chloride 1,000 ml @ 125 mls/hr Q8H IV Last administered on 11/07/18at 06:18; Admin Dose 125 MLS/HR; Start 11/07/18 at 07:00; Stop 11/07/18 at 15:00 Cefazolin Sodium/ Dextrose 50 ml @ 100 mls/hr NOW IVPB ; Start 11/07/18 at 14:34; Stop 11/07/18 at 19:00 Bacitracin/ Polymyxin B Sulfate (Pb Solution) 1,000 ml ONCE IRR ; Start 11/07/18 at 14:34; Stop 11/07/18 at 19:00 Meds reviewed: Yes Allergies Coded Allergies: No Known Allergy (Unverified , 11/05/18) Allergies Reviewed: Yes Labs/Studies Labs Reviewed: Reviewed by anesthesiologist Result Diagram: 11/07/1862711/07/18627 Laboratory Tests 11/07/18 06:28 test: N/A Studies: ECG (sr), CXR (mild cardiomegally) Pre-procedure Exam Last vitals Vital Signs Date Temp Pulse Resp B/P (MAP) Pulse Ox O2 O2 Flow FiO2 Time Delivery Rate 11/07/18 86 12:09 11/07/18 98.5 18 118/72 98 11:18 (87) 11/06/18 Room Air 16:00 11/05/18 2 13:25 Airway: Adequate mouth opening Mallampati: Mallampati II Teeth: Normal Lung: Normal Heart: Normal ASA Physical Status ASA physical status: 3 Emergency: None Pre-operative Attestations Prior to commencing anesthesia and surgery, the patient was re-evaluated, there was verification of: *The patient's identity *The results of appropriate recent lab work and preoperative vital signs *The above evaluation not changing prior to induction *Anesthetic plan, risk benefits, alternative and complications discussed with patient/family; questions answered; patient/family understands, accepts and wishes to proceed. RICO OLSON MD Nov 07, 2018 15:00
[2018-11-07] MEDS ORDERED: SOD CHLORIDE 0.9% 500 ML ONE (15:07)
[2018-11-07] MEDS ORDERED: IODIXANOL LOCM 50 ML BTL ONE (15:09)
[2018-11-07] MEDS ORDERED: LIDOCAINE 1%/EPI (1:100,000) (MDV) 20 ML ONE (15:09)
[2018-11-07] MEDS ORDERED: ETOMIDATE 20 MG INJ ONE (15:10)
[2018-11-07] MEDS ORDERED: MIDAZOLAM 1 MG/ML 2 ML INJ ONE ×2 (15:10→15:11)
[2018-11-07] MEDS ORDERED: FENTAnyl 50 MCG/ML VIAL ONE ×2 (15:11→15:36)
--- NOTE | 2018-11-07 16:36 | OPR ---
Date/Time of Note Date/Time of Note DATE: 11/07/18 TIME: 16:33 Operative Report Procedure Date: Nov 07, 2018 Preoperative Diagnosis Sustained V. tach Postoperative Diagnosis Cream Operation/Procedure Performed ICD Surgeon see signature line Second Operator Juan Anesthesia Type: other Estimated Blood Loss: minimal Transfusion none Specimen None Grafts/Implants none Complications none Procedure Description Operative\Procedure NOTE: Procedure performed: Implantation of single- chamber ICD using a MRI compatible [place] device Left subclavian venogram and radiological interpretations Fluoroscopy and supervision Intracardiac electrocardiogram and defibrillator threshold testing. Indication: CHF and severe cardiomyopathy. Patinet meets SCD-Heft and MADIT criteria for ICD placement for primary prevention of SCD. Patient also presented with symptomatic V. tach arrest requiring to be cardioverted emergently by paramedics. Patient admits to secondary indication for ICD placement as well then. Anesthesia: Per anesthesiologist Supervisor [employer] Department: Trudy Villeda MD Procedure in detail: Written informed consent was obtained after risks benefits and alternatives discussed with the patient and family in detail. Risks including but not limited to risk of infection, bleeding complications, anesthesia related complications, VT, CVA, perforation, pneumothorax hemothorax, etc discussed with pt in detail. Patient was brought into into the [employer] and placed in supine position. sedation was given. Right and left chest area was prepped and draped in regular sterile fashion. [] Left subclavian venogram was performed that showed patent subclavian vein and a small cephalic vein. AC groove area was anesthetized using 1% lidocaine with epi. A 4 cm incision was made in the AC groove area. Blunt dissection was carried out. Cephalic vein was isolated. It was cannulated using a micropuncture needle and an BMW wire was advanced through into the inferior vena cava. Micropuncture sheath was placed over it. BMW wire was removed and a J-wire was advanced through it. Then the micropunctu re sheath was removed and a 6 American sheath was placed over into the cephalic vein. RV ICD lead was advanced under direct fluoroscopy and placed in the apex. Once a good position was found, threshold was checked which showed excellent threshold. It was screwed into place and threshold were checked again which showed good injury pattern and no diaphragmatic stimulation at 10 V an excellent thresholds. Then the sheath was peeled away. Lead was tied down using 0 Ethibond suture. Pocket was irrigated with antibiotic solution. The lead was checked again which showed good thresholds. Then leads were connected into the device. Device was placed into the pocket and sutured using 0 Ethibond suture. At this point if defibrillator threshold testing was performed. First external defibrillator was checked as 1 J. Then through the device patient was induced into V. fib using the method of shock on T. The device appropriately detected the V. fib and successfully cardioverted the patient back into sinus/paced rhythm at 21 J. Pocket was irrigated again using antibiotic solution. Wound was closed with 1 layer of 2.0 Vicryl and 2 layers of 3.0 Vicryl. Steri- Strip was applied and pressure dressing was applied. Patient tolerated procedure well with no complication and was transferred to the recovery room in stable condition. Immediate complication: none Please see physical chart for details regarding pacemaker information and thresholds. Conclusions: Successful implantation of single-chamber ICD and defibrillator threshold testing. TRUDY VILLEDA MD Nov 07, 2018 16:36
[2018-11-07] MEDS: ASPIRIN (EC) 81 MG TAB PO SCH (16:47)
[2018-11-07] MEDS: BENAZEPRIL 10 MG TAB PO SCH (16:47)
[2018-11-07] MEDS ORDERED: morphine 2 MG INJ IV PRN (17:00)
--- NOTE | 2018-11-07 17:13 | CONS ---
Consult Date/Type/Reason Admit Date/Time Nov 05, 2018 at 13:35 Initial Consult Date 11/05/18 Type of Consultation: cv Requesting Provider: DONNIE CASAS MD Date/Time of Note DATE: 11/07/18 TIME: 17:11 Subjective Interventional cardiology follow-up progress note Subjective: Case discussed with the staff and telemetry was reviewed. Patient has remained sinus rhythm with normal episode of ventricular tachycardia. He denies any left-sided chest pain or pressure to me denies any palpitation to me. OFF amiodarone drip overnight. Discussed with multiple family members s/p ICD 11/07/18 Objective: General: no acute distress HEENT: NC/AT. pupils are equal. round. NECK: NO JVD. no stridor. CV: RRR. systolic murmur; no gallop or rubs. PULM: no wheezing or rhonchi. GI: SOFT, NT, ND, no rebound or guarding Extremity: trace B/L LE edema. no clubbing. neuro: awake and alert, OX3. Psych: calm and pleasant rectal: deferred : normal Echocardiogram was personally reviewed which shows: Mild enlargement of left ventricle cavity. Severe left ventricular systolic dysfunction. Ejection fraction is visually estimated at 25-30 %. Tissue Doppler/Mitral Doppler indices are within normal limits. E/E'= 22. These segments of the LV are akinetic mid anterior segment, apical anterior segment, apical lateral segment, inferior mid segment, apical inferior segment and inferoseptum mid segment. There is moderate enlargement of left atrium. Normal appearance of the mitral valve. Mild mitral valve regurgitation. n. No significant aortic stenosis or insufficiency. Normal trileaflet aortic valve structure. Normal appearance and function of the tricuspid valve with trace physiologic regurgitation. Objective Vitals Vital Signs Date Temp Pulse Resp B/P (MAP) Pulse Ox O2 O2 Flow FiO2 Time Delivery Rate 11/07/18 98.2 82 17 126/72 94 Room Air 16:37 (90) 83 11/05/18 2 13:25 Intake and Output 11/06/18 11/06/18 11/07/18 1414:59 22:59 06:59 IntakeIntake Total 676.4 ml 120 ml 720 ml OutputOutput Total 1200 ml 300 ml BalanceBalance -523.6 ml -180 ml 720 ml Results/Medications Result Diagram: 11/07/1828 11/07/18627 Results 24 hrs Laboratory Tests Test 11/07/18 06:28 White Blood Count 9.0 Red Blood Count 4.61 L Hemoglobin 13.0 L Hematocrit 40.2 L Mean Corpuscular Volume 87.2 Mean Corpuscular Hemoglobin 28.2 L Mean Corpuscular Hemoglobin Concent 32.3 Red Cell Distribution Width 13.5 Platelet Count 181 Mean Platelet Volume 11.2 H Immature Granulocytes % 0.300 Neutrophils % 68.9 Lymphocytes % 20.9 Monocytes % 7.0 Eosinophils % 2.6 Basophils % 0.3 Nucleated Red Blood Cells % 0.0 Immature Granulocytes # 0.030 Neutrophils # 6.2 Lymphocytes # 1.9 Monocytes # 0.6 Eosinophils # 0.2 Basophils # 0.0 Nucleated Red Blood Cells # 0.0 Prothrombin Time 13.2 Prothrombin Time Ratio 1.0 INR International Normalized Ratio 0.99 Sodium Level 142 Potassium Level 4.1 Chloride Level 108 Carbon Dioxide Level 24 Anion Gap 10 Blood Urea Nitrogen 8 Creatinine 0.92 Est Glomerular Filtrat Rate mL/min > 60 Glucose Level 120 Calcium Level 9.5 Total Bilirubin 0.7 Direct Bilirubin 0.00 Indirect Bilirubin 0.7 Aspartate Amino Transf (AST/SGOT) 20 Alanine Aminotransferase (ALT/SGPT) 27 Alkaline Phosphatase 47 Total Protein 6.5 Albumin 4.0 Globulin 2.50 Albumin/Globulin Ratio 1.60 Home Meds Reported Medications Lorazepam* (Lorazepam*) 0.5 Mg Tablet, 0.5 MG PO NEEDED, TAB 11/05/18 Ergocalciferol (Vitamin D2) (VITAMIN D2) 50,000 Unit Capsule, 06264 UNIT PO Q15 D, CAP LAST TAKEN 10/24/18 11/05/18 Clopidogrel Bisulfate* (Clopidogrel Bisulfate*) 75 Mg Tablet, 75 MG PO DAILY, #30 TAB 11/05/18 Benazepril Hcl* (Benazepril Hcl*) 20 Mg Tablet, 20 MG PO DAILY, #30 TAB 11/05/18 Tamsulosin Hcl* (Flomax*) 0.4 Mg Cap.er.24h, 0.4 MG PO DAILY, CAP 11/05/18 Atorvastatin Calcium* (Atorvastatin Calcium*) 20 Mg Tablet, 20 MG PO QHS, #30 TAB 11/05/18 Metoprolol Tartrate* (Lopressor*) 100 Mg Tablet, 100 MG PO BID, #60 TAB 11/05/18 Zolpidem Tartrate* (Ambien*) 5 Mg Tablet, 5 MG PO QHS PRN for NEEDED, #30 TAB 11/05/18 Dexlansoprazole (Dexilant) 30 Mg Cap..mp, 30 MG PO NEEDED, #30 CAP 11/05/18 Aspirin* (Aspirin* EC) 81 Mg Tablet.dr, 81 MG PO DAILY, TAB 11/05/18 Discontinued Reported Medications Metoprolol Tartrate* (Lopressor*) 100 Mg Tablet, 100 MG PO BID, TAB 05/07/15 Ergocalciferol* (Drisdol* (Vitamin D2)) 50,000 Unit Capsule, 42974 UNIT PO Q14 DAYS, CAP 05/07/15 Esomeprazole Mag Trihydrate (Nexium) 20 Mg Capsule.dr, 20 MG PO DAILY, CAP 05/07/15 Omeprazole* (Omeprazole*) 20 Mg Capsule.dr, 20 MG PO DAILY, CAP 05/07/15 Lorazepam* (Ativan*) 0.5 Mg Tablet, 0.5 MG PO HS PRN for ANXIETY, TAB 05/07/15 Terazosin Hcl* (Terazosin Hcl*) 5 Mg Capsule, 5 MG PO HS, CAP 04/01/15 Benazepril Hcl* (Benazepril Hcl*) 5 Mg Tablet, 5 MG PO DAILY, TAB 04/01/15 Aspirin* (Aspirin* Chew) 81 Mg Tab.chew, 81 MG PO DAILY, TAB.CHEW 04/01/15 Discontinued Scripts Atorvastatin Calcium* (Atorvastatin Calcium*) 20 Mg Tab, 40 MG PO DAILY@21 for 30 Days, 3 Refills Prov:Jonnie London DO 05/08/15 Clopidogrel Bisulfate (Clopidogrel) 75 Mg Tab, 75 MG PO DAILY, #30 CAP 1 Refill Prov:Jonnie London DO 04/02/15 Medications Current Medications Aspirin (Halfprin) 81 mg DAILY PO Last administered on 11/06/18at 08:32; Admin Dose 81 MG; Start 11/06/18 at 09:00 Nitroglycerin (Nitroglycerin (Sl Tab) 0.4 Mg) 1 tab Q5M PRN SL CHEST PAIN; Start 11/05/18 at 15:00 Acetaminophen (Tylenol Tab) 650 mg Q4H PRN PO NON-CARDIAC PAIN LEVEL 1-3; Start 11/05/18 at 15:00 Oxycodone/ Acetaminophen (Percocet (5/ 325)) 1 tab Q4H PRN PO REPORTED NON- CARDIAC PAIN 4-7; Start 11/05/18 at 15:00 Morphine Sulfate (morphine) 1 mg Q1H PRN IV PAIN NOT RELIEVED BY OTHERS; Start 11/05/18 at 15:00 Atorvastatin Calcium (Lipitor) 20 mg QHS PO Last administered on 11/06/18at 20:38; Admin Dose 20 MG; Start 11/05/18 at 21:00 Tamsulosin HCl (Flomax) 0.4 mg DAILY@2100 PO Last administered on 11/06/18at 20:37; Admin Dose 0.4 MG; Start 11/05/18 at 21:00 Pantoprazole (Protonix Tab) 40 mg DAILY@06 PO Last administered on 11/07/18at 06:13; Admin Dose 40 MG; Start 11/06/18 at 06:00 Benazepril HCl (Lotensin) 20 mg DAILY PO Last administered on 11/06/18at 08:32; Admin Dose 20 MG; Start 11/06/18 at 09:00 Carvedilol (Coreg) 6.25 mg TID PO Last administered on 11/06/18at 20:37; Admin Dose 6.25 MG; Start 11/06/18 at 13:00 Cefazolin Sodium/ Dextrose 50 ml @ 100 mls/hr NOW IVPB ; Start 11/07/18 at 14:34; Stop 11/07/18 at 19:00 Bacitracin/ Polymyxin B Sulfate (Pb Solution) 1,000 ml ONCE IRR ; Start 11/07/18 at 14:34; Stop 11/07/18 at 19:00 Morphine Sulfate (morphine) 1 mg Q1H PRN IV PAIN; Start 11/07/18 at 17:00 Cefazolin Sodium 50 ml @ 100 mls/hr Q8 IVPB ; Start 11/07/18 at 22:00; Stop 11/08/18 at 14:29 Assessment/Plan Hospital Course (Demo Recall) 1. Symptomatic sustained ventricular tachycardia requiring emergent cardioversion 2. Coronary artery disease with history of multiple PCI 3. CHF: chronic and stable 4. History of PCI 5. Diabetes 6. Dyslipidemia 7. Likely obstructive sleep apnea 8. Obesity 9. Severe ischemic cardiomyopathy Recommendations: We will continue with the aspirin Continue with TESSA inhibitor inc carvedilol as tolerated /Needed Echocardiogram was reviewed which confirmed severe LV dysfunction Statin will be continued Cardiac enzymes will be repeated We will continue to closely monitor in the ICU at least overnight s/p ICD 11/07/18. DC planning tomorrow if stable Thank you for his referral. We will continue to follow along with you TRUDY BENITEZ MD [facility] TRUDY BENITEZ MD Nov 07, 2018 17:12
[2018-11-07] MEDS: TAMSULOSIN (SR) 0.4 MG CAP PO SCH (20:20)
[2018-11-07] MEDS: ATORVASTATIN 20 MG TAB PO SCH (20:20)
[2018-11-07] MEDS: CEFAZOLIN 1 GM/50 ML (PMX) 50 ML IVPB SCH (21:28)
[2018-11-08] VITALS (9 sets, daily range): BP systolic 118–126; BP diastolic 67–78; PULSE 70–100; RESP 18–20
[2018-11-08] MEDS: PANTOPRAZOLE (EC) 40 MG TAB PO SCH (05:32)
[2018-11-08] MEDS: CEFAZOLIN 1 GM/50 ML (PMX) 50 ML IVPB SCH ×2 (05:33→13:42)
--- NOTE | 2018-11-08 07:20 | PAC ---
Date/Time of Note Date/Time of Note DATE: 11/08/18 TIME: 07:20 Post-Anesthesia Notes Post-Anesthesia Note Last documented vital signs Vital Signs Date Temp Pulse Resp B/P (MAP) Pulse Ox O2 O2 Flow FiO2 Time Delivery Rate 11/08/18 98.6 89 18 126/73 93 04:05 (90) 11/07/18 Room Air 17:51 11/05/18 2 13:25 Activity: WNL Respiratory function: WNL Cardiovascular function: WNL Mental status: Baseline Pain reasonably controlled: Yes Hydration appropriate: Yes Nausea/Vomiting absent: No RICO OLSON MD Nov 08, 2018 07:20
[2018-11-08] MEDS: BENAZEPRIL 10 MG TAB PO SCH (08:42)
[2018-11-08] MEDS: ASPIRIN (EC) 81 MG TAB PO SCH (08:42)
--- NOTE | 2018-11-08 10:09 | CONS ---
Consult Date/Type/Reason Admit Date/Time Nov 05, 2018 at 13:35 Initial Consult Date 11/05/18 Type of Consultation: cv Requesting Provider: DONNIE CASAS MD Date/Time of Note DATE: 11/08/18 TIME: 10:07 Subjective Interventional cardiology follow-up progress note Subjective: Case discussed with the staff and telemetry was reviewed. Patient has remained sinus rhythm with no more episode of ventricular tachycardia. He denies any left-sided chest pain or pressure to me denies any palpitation to me, except for minimal tenderness at ICD site OFF amiodarone drip overnight. Discussed with multiple family members s/p ICD 11/07/18 Objective: General: no acute distress HEENT: NC/AT. pupils are equal. round. NECK: NO JVD. no stridor. CV: RRR. systolic murmur; no gallop or rubs. PULM: no wheezing or rhonchi. GI: SOFT, NT, ND, no rebound or guarding Extremity: trace B/L LE edema. no clubbing. neuro: awake and alert, OX3. Psych: calm and pleasant rectal: deferred chest s/p ICD NO Bleeding or hematoma Echocardiogram was personally reviewed which shows: Mild enlargement of left ventricle cavity. Severe left ventricular systolic dysfunction. Ejection fraction is visually estimated at 25-30 %. Tissue Doppler/Mitral Doppler indices are within normal limits. E/E'= 22. These segments of the LV are akinetic mid anterior segment, apical anterior segment, apical lateral segment, inferior mid segment, apical inferior segment and inferoseptum mid segment. There is moderate enlargement of left atrium. Normal appearance of the mitral valve. Mild mitral valve regurgitation. n. No significant aortic stenosis or insufficiency. Normal trileaflet aortic valve structure. Normal appearance and function of the tricuspid valve with trace physiologic regurgitation. Objective Vitals Vital Signs Date Temp Pulse Resp B/P (MAP) Pulse Ox O2 O2 Flow FiO2 Time Delivery Rate 11/08/18 70 08:16 11/08/18 98.4 18 124/77 94 07:36 (93) 11/07/18 Room Air 17:51 11/05/18 2 13:25 Intake and Output 11/07/18 11/07/18 11/08/18 1515:00 23:00 07:00 IntakeIntake Total 250 ml 1400 ml BalanceBalance 250 ml 1400 ml Results/Medications Result Diagram: 11/08/18 0740 11/08/18 0801 Results 24 hrs Laboratory Tests Test 11/08/18 07:40 11/08/18 08:01 White Blood Count 7.9 Red Blood Count 4.50 L Hemoglobin 12.6 L Hematocrit 38.9 L Mean Corpuscular Volume 86.4 Mean Corpuscular Hemoglobin 28.0 L Mean Corpuscular Hemoglobin Concent 32.4 Red Cell Distribution Width 13.5 Platelet Count 145 Mean Platelet Volume 11.1 H Immature Granulocytes % 0.300 Neutrophils % 68.9 Lymphocytes % 19.2 Monocytes % 7.6 Eosinophils % 3.6 Basophils % 0.4 Nucleated Red Blood Cells % 0.0 Immature Granulocytes # 0.020 Neutrophils # 5.4 Lymphocytes # 1.5 Monocytes # 0.6 Eosinophils # 0.3 Basophils # 0.0 Nucleated Red Blood Cells # 0.0 Sodium Level 141 Potassium Level 4.0 Chloride Level 110 Carbon Dioxide Level 24 Anion Gap 7 Blood Urea Nitrogen 10 Creatinine 0.91 Est Glomerular Filtrat Rate mL/min > 60 Glucose Level 99 Calcium Level 9.4 Total Bilirubin 1.0 Direct Bilirubin 0.00 Indirect Bilirubin 1.0 Aspartate Amino Transf (AST/SGOT) 19 Alanine Aminotransferase (ALT/SGPT) 30 Alkaline Phosphatase 46 Total Protein 6.2 Albumin 3.5 Globulin 2.70 Albumin/Globulin Ratio 1.29 Home Meds Reported Medications Lorazepam* (Lorazepam*) 0.5 Mg Tablet, 0.5 MG PO NEEDED, TAB 11/05/18 Ergocalciferol (Vitamin D2) (VITAMIN D2) 50,000 Unit Capsule, 07532 UNIT PO Q15 D, CAP LAST TAKEN 10/24/18 11/05/18 Clopidogrel Bisulfate* (Clopidogrel Bisulfate*) 75 Mg Tablet, 75 MG PO DAILY, #30 TAB 11/05/18 Benazepril Hcl* (Benazepril Hcl*) 20 Mg Tablet, 20 MG PO DAILY, #30 TAB 11/05/18 Tamsulosin Hcl* (Flomax*) 0.4 Mg Cap.er.24h, 0.4 MG PO DAILY, CAP 11/05/18 Atorvastatin Calcium* (Atorvastatin Calcium*) 20 Mg Tablet, 20 MG PO QHS, #30 TAB 11/05/18 Metoprolol Tartrate* (Lopressor*) 100 Mg Tablet, 100 MG PO BID, #60 TAB 11/05/18 Zolpidem Tartrate* (Ambien*) 5 Mg Tablet, 5 MG PO QHS PRN for NEEDED, #30 TAB 11/05/18 Dexlansoprazole (Dexilant) 30 Mg Cap..mp, 30 MG PO NEEDED, #30 CAP 11/05/18 Aspirin* (Aspirin* EC) 81 Mg Tablet.dr, 81 MG PO DAILY, TAB 11/05/18 Discontinued Reported Medications Metoprolol Tartrate* (Lopressor*) 100 Mg Tablet, 100 MG PO BID, TAB 05/07/15 Ergocalciferol* (Drisdol* (Vitamin D2)) 50,000 Unit Capsule, 83407 UNIT PO Q14 DAYS, CAP 05/07/15 Esomeprazole Mag Trihydrate (Nexium) 20 Mg Capsule.dr, 20 MG PO DAILY, CAP 05/07/15 Omeprazole* (Omeprazole*) 20 Mg Capsule.dr, 20 MG PO DAILY, CAP 05/07/15 Lorazepam* (Ativan*) 0.5 Mg Tablet, 0.5 MG PO HS PRN for ANXIETY, TAB 05/07/15 Terazosin Hcl* (Terazosin Hcl*) 5 Mg Capsule, 5 MG PO HS, CAP 04/01/15 Benazepril Hcl* (Benazepril Hcl*) 5 Mg Tablet, 5 MG PO DAILY, TAB 04/01/15 Aspirin* (Aspirin* Chew) 81 Mg Tab.chew, 81 MG PO DAILY, TAB.CHEW 04/01/15 Discontinued Scripts Atorvastatin Calcium* (Atorvastatin Calcium*) 20 Mg Tab, 40 MG PO DAILY@21 for 30 Days, 3 Refills Prov:Jonnie London DO 05/08/15 Clopidogrel Bisulfate (Clopidogrel) 75 Mg Tab, 75 MG PO DAILY, #30 CAP 1 Refill Prov:Jonnie London DO 04/02/15 Medications Current Medications Aspirin (Halfprin) 81 mg DAILY PO Last administered on 11/08/18at 08:42; Admin Dose 81 MG; Start 11/06/18 at 09:00 Nitroglycerin (Nitroglycerin (Sl Tab) 0.4 Mg) 1 tab Q5M PRN SL CHEST PAIN; Start 11/05/18 at 15:00 Acetaminophen (Tylenol Tab) 650 mg Q4H PRN PO NON-CARDIAC PAIN LEVEL 1-3 Last administered on 11/08/18 05:32; Admin Dose 650 MG; Start 11/05/18 at 15:00 Oxycodone/ Acetaminophen (Percocet (5/ 325)) 1 tab Q4H PRN PO REPORTED NON- CARDIAC PAIN 4-7; Start 11/05/18 at 15:00 Morphine Sulfate (morphine) 1 mg Q1H PRN IV PAIN NOT RELIEVED BY OTHERS Last administered on 11/07/18 22:27; Admin Dose 1 MG; Start 11/05/18 at 15:00 Atorvastatin Calcium (Lipitor) 20 mg QHS PO Last administered on 11/07/18 20:20; Admin Dose 20 MG; Start 11/05/18 at 21:00 Tamsulosin HCl (Flomax) 0.4 mg DAILY@2100 PO Last administered on 11/07/18 20:20; Admin Dose 0.4 MG; Start 11/05/18 at 21:00 Pantoprazole (Protonix Tab) 40 mg DAILY@06 PO Last administered on 11/08/18 05:32; Admin Dose 40 MG; Start 11/06/18 at 06:00 Benazepril HCl (Lotensin) 20 mg DAILY PO Last administered on 11/08/18 08:42; Admin Dose 20 MG; Start 11/06/18 at 09:00 Carvedilol (Coreg) 6.25 mg TID PO Last administered on 11/08/18 08:42; Admin Dose 6.25 MG; Start 11/06/18 at 13:00 Morphine Sulfate (morphine) 1 mg Q1H PRN IV PAIN; Start 11/07/18 at 17:00 Cefazolin Sodium 50 ml @ 100 mls/hr Q8 IVPB Last administered on 11/08/18 05:33; Admin Dose 100 MLS/HR; Start 11/07/18 at 22:00; Stop 11/08/18 at 14:29 Assessment/Plan Hospital Course (Demo Recall) 1. Symptomatic sustained ventricular tachycardia requiring emergent cardioversion 2. Coronary artery disease with history of multiple PCI 3. CHF: chronic and stable 4. History of PCI 5. Diabetes 6. Dyslipidemia 7. Likely obstructive sleep apnea 8. Obesity 9. Severe ischemic cardiomyopathy Recommendations: We will continue with the aspirin Continue with TESSA inhibitor inc carvedilol as tolerated /Needed Echocardiogram was reviewed which confirmed severe LV dysfunction Statin will be continued Cardiac enzymes will be repeated We will continue to closely monitor in the ICU at least overnight s/p ICD 11/07/18. ICD was interrogated which showed normal functioning device DC planning today will schedule for ICD check on November 16 in office Thank you for his referral. We will continue to follow along with you TRUDY BENITEZ MD [facility] TRUDY BENITEZ MD Nov 08, 2018 10:09
--- NOTE | 2018-11-08 14:31 | PN ---
Date/Time of Note Date/Time of Note DATE: 11/08/18 TIME: 14:28 Assessment/Plan VTE Prophylaxis Risk score (from Nsg)>0 risk: 4 SCD applied (from Ns): Yes SCD contraindicated: other (on.) Pharmacological prophylaxis: LMWH Lines/Catheters IV Catheter Type (from Nrs): Peripheral IV Central line still needed: No Urinary Cath still in place: No Reason Cath still needed: urinary retention Assessment/Plan Assessment/Plan 1. Left main: is short and basically do all ostium 2. LAD: has 20 % stenosis at proximal LAD, . Mid LAD stent is widely patent. Second diagonal ostial is jailed by the LAD stent but no significant change from previous study. 3. Left circumflex artery: is condominant. it had 20 % stenosis. 4. RCA: is cool dominant. it has 20 % stenosis 5. LV gram showed dilated left ventricle with ejection fraction of probably about 25%. LVEDP is about 8 with about 10 mm gradient across aortic valve Additional medical problems: 1: Ischemic heart disease angina with elevated troponin 0.8 in #1 ; and 0.6 #3 during last 24 hours along with elevation of BNP with severe ischemic cardiomyopathy. 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 The patient was shocked multiple times by paramedics and possibly also in the emergency room; about which the patient has no recollection and sinus rhythm was restored. It is obvious that on and off the patient had lost consciousness and he is unable to tell all the story due to of lack of memory for that episodes.Now s/p ICD of [employer] type. 2. Anoxic or hypoxic encephalopathy exact duration unknown. 3. Epigastric pain of undetermined origin at this time 4. History of gastroesophageal reflux and dysphagia 5. Dyslipidemia with almost perfect lipid panel except low HDL in the exam as an outpatient about a month ago. 6. Anxiety disorder 7. Flat feet. 8. BPH 9. Lumbosacral radiculopathy with mainly left L4-5 and S1 radiculopathy 10. COPD with a history of smoking quit almost 8+ years ago. 11. Obesity with snoring and apnea hypopnea syndrome 12. Onychomycosis Result Diagram: Result Diagram: 11/08/18 0740 11/08/18 0801 Results 24hrs Laboratory Tests Test 11/08/18 07:40 11/08/18 08:01 White Blood Count 7.9 Red Blood Count 4.50 L Hemoglobin 12.6 L Hematocrit 38.9 L Mean Corpuscular Volume 86.4 Mean Corpuscular Hemoglobin 28.0 L Mean Corpuscular Hemoglobin Concent 32.4 Red Cell Distribution Width 13.5 Platelet Count 145 Mean Platelet Volume 11.1 H Immature Granulocytes % 0.300 Neutrophils % 68.9 Lymphocytes % 19.2 Monocytes % 7.6 Eosinophils % 3.6 Basophils % 0.4 Nucleated Red Blood Cells % 0.0 Immature Granulocytes # 0.020 Neutrophils # 5.4 Lymphocytes # 1.5 Monocytes # 0.6 Eosinophils # 0.3 Basophils # 0.0 Nucleated Red Blood Cells # 0.0 Sodium Level 141 Potassium Level 4.0 Chloride Level 110 Carbon Dioxide Level 24 Anion Gap 7 Blood Urea Nitrogen 10 Creatinine 0.91 Est Glomerular Filtrat Rate mL/min > 60 Glucose Level 99 Calcium Level 9.4 Total Bilirubin 1.0 Direct Bilirubin 0.00 Indirect Bilirubin 1.0 Aspartate Amino Transf (AST/SGOT) 19 Alanine Aminotransferase (ALT/SGPT) 30 Alkaline Phosphatase 46 Total Protein 6.2 Albumin 3.5 Globulin 2.70 Albumin/Globulin Ratio 1.29 Subjective 24 Hr Interval Summary Free Text/Dictation No complaints. Constitutional: improved; No no complaints, No chills, No diaphoresis, No disoriented, No febrile, No poor po, No requiring IVF, No requiring O2, No other ENT: No no complaints, No bleeding, No pain, No congestion, No discharge, No dysphagia, No sore throat, No other Respiratory: No no complaints, No pain, No cough, No pleuritic pain, No shortness of breath, No sputum, No wheezing, No other Cardiovascular: No no complaints, No chest pain, No edema, No lightheadedness, No orthopenea, No palpitations, No paroxysmal nocturnal dyspnea, No other Gastrointestinal: No no complaints, No pain, No blood, No constipation, No decreased appetite, No diarrhea, No flatus, No nausea, No passing stool, No vomiting, No other Genitourinary: dysuria; No no complaints, No bleeding, No discharge, No flank pain, No hematuria, No other Musculoskeletal: back pain; No no complaints, No bone/joint pain, No neck pain, No restricted range of motion, No swelling, No other Skin: No no complaints, No bruising, No erythema, No laceration, No pruritis, No rash, No skin lesions, No other Neurologic: No no complaints, No confusion, No dizziness, No focal-weakness, No headache, No syncope, No seizure, No other Endocrine: No no complaints, No polyuria, No polydypsia, No dry skin, No temp intolerance, No other Lymphatic: No no complaints, No adenopathy, No tender nodes, No lymphadema, No other Psychological: anxiety; No no complaints, No nl mood/affect, No confusion, No depression, No suicidal, No other Exam/Review of Systems Exam Vitals Vital Signs Date Temp Pulse Resp B/P (MAP) Pulse Ox O2 O2 Flow FiO2 Time Delivery Rate 11/08/18 98.0 87 18 126/69 94 11:18 (88) 11/07/18 Room Air 17:51 11/05/18 2 13:25 Intake and Output 11/07/18 11/07/18 11/08/18 1515:00 23:00 07:00 IntakeIntake Total 250 ml 1400 ml BalanceBalance 250 ml 1400 ml Constitutional: alert, oriented, well developed, distress, frail; No non-verbal, No obese, No other Psych: anxiety; No no complaints, No nl mood/affect, No confusion, No depression, No suicidal, No other Head: normocephalic, atraumatic; No lacerations, No hematomas, No other Eyes: nl conjunctiva, EOMI, nl lids, PERRL; No nl sclera, No icteric, No fundi, disc, No other ENMT: nl lips & teeth, nl nasal mucosa & septum; No nl external ears & nose, No mucosa pink and moist, No intubated, No tympanic membranes, No other Neck: jvd; No supple, No non-tender, No bruits, No masses, No thyromegaly, No nuchal rigidity, No other Respiratory: normal air movement, crackles/rales; No clear to auscultation, No congested cough, No diminished breath sounds, No intercostal retraction, No labored breathing, No respirations, No tactile fremitus, No wheezing, No other Cardiovascular: regular rate and rhythm, nl pulses; No bruits, No diastolic murmur, No edema, No gallop, No irregular rhythm, No jugular venous distention (JVD), No murmurs/extra sounds, No rub, No systolic murmur, No S3, No S4, No other Gastrointestinal: nl liver, spleen, bowel sounds; No soft, No non-tender, No ascites, No distended, No firm, No hepatomegaly, No mass, No rebound or guarding, No splenomegaly, No surgical scars, No tender, No other Genitourinary - Male: nl penis, nl scrotum Musculoskeletal: joint tenderness, muscle tone, muscle weakness; No nl extremities to inspection, No nl gait and stance, No range of motion, No spine non-tender, No swelling, No other Extremities: No normal pulses, No calf tenderness, No cyanosis, No clubbing, No edema, No pitting pedal edema, No palpable cord, No tenderness, No other Neurological: BUSINESS ANALYSIS SPECIALIST II-XII intact, numbness; No nl mental status, No nl speech, No nl strength, No confused, No DTR's symmetric, No focal weakness, No lethargic, No reflexes, No unresponsive, No other Skin: nl turgor; No rash or lesions, No diaphoresis, No ecchymosis, No laceration, No puncture, No other Lymph: No nl lymph nodes, No enlarged, No nontender, No other Results Results 24hrs Laboratory Tests Test 11/08/18 07:40 11/08/18 08:01 White Blood Count 7.9 Red Blood Count 4.50 L Hemoglobin 12.6 L Hematocrit 38.9 L Mean Corpuscular Volume 86.4 Mean Corpuscular Hemoglobin 28.0 L Mean Corpuscular Hemoglobin Concent 32.4 Red Cell Distribution Width 13.5 Platelet Count 145 Mean Platelet Volume 11.1 H Immature Granulocytes % 0.300 Neutrophils % 68.9 Lymphocytes % 19.2 Monocytes % 7.6 Eosinophils % 3.6 Basophils % 0.4 Nucleated Red Blood Cells % 0.0 Immature Granulocytes # 0.020 Neutrophils # 5.4 Lymphocytes # 1.5 Monocytes # 0.6 Eosinophils # 0.3 Basophils # 0.0 Nucleated Red Blood Cells # 0.0 Sodium Level 141 Potassium Level 4.0 Chloride Level 110 Carbon Dioxide Level 24 Anion Gap 7 Blood Urea Nitrogen 10 Creatinine 0.91 Est Glomerular Filtrat Rate mL/min > 60 Glucose Level 99 Calcium Level 9.4 Total Bilirubin 1.0 Direct Bilirubin 0.00 Indirect Bilirubin 1.0 Aspartate Amino Transf (AST/SGOT) 19 Alanine Aminotransferase (ALT/SGPT) 30 Alkaline Phosphatase 46 Total Protein 6.2 Albumin 3.5 Globulin 2.70 Albumin/Globulin Ratio 1.29 Medications Medication Current Medications Aspirin (Halfprin) 81 mg DAILY PO Last administered on 11/08/18 08:42; Admin Dose 81 MG; Start 11/06/18 at 09:00 Nitroglycerin (Nitroglycerin (Sl Tab) 0.4 Mg) 1 tab Q5M PRN SL CHEST PAIN; Start 11/05/18 at 15:00 Acetaminophen (Tylenol Tab) 650 mg Q4H PRN PO NON-CARDIAC PAIN LEVEL 1-3 Last administered on 11/08/18 05:32; Admin Dose 650 MG; Start 11/05/18 at 15:00 Oxycodone/ Acetaminophen (Percocet (5/ 325)) 1 tab Q4H PRN PO REPORTED NON- CARDIAC PAIN 4-7; Start 11/05/18 at 15:00 Morphine Sulfate (morphine) 1 mg Q1H PRN IV PAIN NOT RELIEVED BY OTHERS Last administered on 11/07/18 22:27; Admin Dose 1 MG; Start 11/05/18 at 15:00 Atorvastatin Calcium (Lipitor) 20 mg QHS PO Last administered on 11/07/18 20:20; Admin Dose 20 MG; Start 11/05/18 at 21:00 Tamsulosin HCl (Flomax) 0.4 mg DAILY@2100 PO Last administered on 11/07/18 20:20; Admin Dose 0.4 MG; Start 11/05/18 at 21:00 Pantoprazole (Protonix Tab) 40 mg DAILY@06 PO Last administered on 11/08/18 05:32; Admin Dose 40 MG; Start 11/06/18 at 06:00 Benazepril HCl (Lotensin) 20 mg DAILY PO Last administered on 11/08/18 08:42; Admin Dose 20 MG; Start 11/06/18 at 09:00 Carvedilol (Coreg) 6.25 mg TID PO Last administered on 11/08/18 13:42; Admin Dose 6.25 MG; Start 11/06/18 at 13:00 Morphine Sulfate (morphine) 1 mg Q1H PRN IV PAIN; Start 11/07/18 at 17:00 Cefazolin Sodium 50 ml @ 100 mls/hr Q8 IVPB Last administered on 11/08/18at 13:42; Admin Dose 100 MLS/HR; Start 11/07/18 at 22:00; Stop 11/08/18 at 14:29 GARY BISWAS MD Nov 08, 2018 14:31
--- NOTE | 2018-11-08 15:19 | PDOCDIS ---
Discharge Instructions DIAGNOSIS Discharge Diagnosis 1: Ischemic heart disease angina with elevated troponin 0.8 in #1 ; and 0.6 #3 during last 24 hours along with elevation of BNP with severe ischemic cardiomyop athy. 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 The patient was shocked multiple times by paramedics and possibly also in the emergency room; about which the patient has no recollection and sinus rhythm was restored. It is obvious that on and off the patient had lost consciousness and he is unable to tell all the story due to of lack of memory for that episodes.Now s/p ICD of [employer] type. 2. Anoxic or hypoxic encephalopathy exact duration unknown. 3. Epigastric pain of undetermined origin at this time 4. History of gastroesophageal reflux and dysphagia 5. Dyslipidemia with almost perfect lipid panel except low HDL in the exam as a n outpatient about a month ago. 6. Anxiety disorder 7. Flat feet. 8. BPH 9. Lumbosacral radiculopathy with mainly left L4-5 and S1 radiculopathy 10. COPD with a history of smoking quit almost 8+ years ago. 11. Obesity with snoring and apnea hypopnea syndrome 12. Onychomycosis CONDITION [id number] Patient Condition: [id number] Guarded HOME CARE INSTRUCTIONS: [id number] Diet Instructions: [id number] Reduced Calorie ACTIVITY: [id number] Activity Restrictions: [id number] Slowly Increase Activity [id number] Bathing Restrictions: [id number] Shower FOLLOW UP/APPOINTMENTS Follow-up Plan In 1 week or as needed to Dr. Mar In 3 days or as needed to Dr. Padilla SCHOOL/WORK RELEASE May return to School/Work with: GARY Franco MD Nov 08, 2018 15:18
--- NOTE | 2018-11-08 15:23 | DS ---
Date/Time of Note Date/Time of Note DATE: 11/08/18 TIME: 15:21 Discharge Summary Admission/Discharge Info Admit Date/Time Nov 05, 2018 at 13:35 Discharge Date/Time November 08/2019 at 16 00 p.m. Discharge Diagnosis 1: Ischemic heart disease angina with elevated troponin 0.8 in #1 ; and 0.6 #3 during last 24 hours along with elevation of BNP with severe ischemic cardiomyopathy. 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 The patient was shocked multiple times by paramedics and possibly also in the emergency room; about which the patient has no recollection and sinus rhythm was restored. It is obvious that on and off the patient had lost consciousness and he is unable to tell all the story due to of lack of memory for that episodes.Now s/p ICD of [employer] type. 2. Anoxic or hypoxic encephalopathy exact duration unknown. 3. Epigastric pain of undetermined origin at this time 4. History of gastroesophageal reflux and dysphagia 5. Dyslipidemia with almost perfect lipid panel except low HDL in the exam as an outpatient about a month ago. 6. Anxiety disorder 7. Flat feet. 8. BPH 9. Lumbosacral radiculopathy with mainly left L4-5 and S1 radiculopathy 10. COPD with a history of smoking quit almost 8+ years ago. 11. Obesity with snoring and apnea hypopnea syndrome 12. Onychomycosis Patient Condition: Guarded Hx of Present Illness History was taken from patient by conversations with the who was nearby. 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 According to him he did well however he did not pass the test. At the end he started conversation with the examiner explaining that he made a correct answers to the required question. When examiner started to discuss real issues patient felt pain in the epigastric region and realized that her heart is not beating regularly and he started to h ave excessive perspiration. He felt that his condition is worsening immediately paramedics were called by using at least 3 telephones; unfortunately the [employer] System was responding like please leave a message. He was surprised that the examiner did not put the attention of on the worsening of his condition. He called his son and asked him to call 911 from his side which was done. It is no evident that the son and the paramedics arrived to the scene and about 15 to 20 minutes after the episode started. According to the patient somebody told him that they that they shocked him in the paramedics car. Patient does not recall. But he recalls that some kind of bag was connected to his mouth and they were telling him to excel and blew out with the air to the balloon. He does not recall exactly was able to do or not because he was having he was having a problem breathing. Arrived to the emergency room [facility] but he recalls that they told him that he was shocked. Dr. Parks was called who performed the emergency angiography with no stenting due to of overall important and only 20% narrowing of the coronaries. It was found that his left ventricular ejection fraction was at the range of 20%. Plan to place ICD. Last night patient was on Cordarone drip. No new episodes of acute coronary event or arrhythmia inside the hospital. Patient was seen in ICU. Hospital Course The patient was admitted with Lavern graham who was shocked multiple times in the field. ICD was implanted doing fine we will follow as an outpatient. Home Meds Reported Medications Lorazepam* (Lorazepam*) 0.5 Mg Tablet, 0.5 MG PO NEEDED, TAB 11/05/18 Ergocalciferol (Vitamin D2) (VITAMIN D2) 50,000 Unit Capsule, 27812 UNIT PO Q15 D, CAP LAST TAKEN 10/24/18 11/05/18 Clopidogrel Bisulfate* (Clopidogrel Bisulfate*) 75 Mg Tablet, 75 MG PO DAILY, #30 TAB 11/05/18 Benazepril Hcl* (Benazepril Hcl*) 20 Mg Tablet, 20 MG PO DAILY, #30 TAB 11/05/18 Tamsulosin Hcl* (Flomax*) 0.4 Mg Cap.er.24h, 0.4 MG PO DAILY, CAP 11/05/18 Atorvastatin Calcium* (Atorvastatin Calcium*) 20 Mg Tablet, 20 MG PO QHS, #30 TAB 11/05/18 Metoprolol Tartrate* (Lopressor*) 100 Mg Tablet, 100 MG PO BID, #60 TAB 11/05/18 Zolpidem Tartrate* (Ambien*) 5 Mg Tablet, 5 MG PO QHS PRN for NEEDED, #30 TAB 11/05/18 Dexlansoprazole (Dexilant) 30 Mg Cap., 30 MG PO NEEDED, #30 CAP 11/05/18 Aspirin* (Aspirin* EC) 81 Mg Tablet.dr, 81 MG PO DAILY, TAB 11/05/18 Discontinued Reported Medications Metoprolol Tartrate* (Lopressor*) 100 Mg Tablet, 100 MG PO BID, TAB 05/07/15 Ergocalciferol* (Drisdol* (Vitamin D2)) 50,000 Unit Capsule, 71171 UNIT PO Q14 DAYS, CAP 05/07/15 Esomeprazole Mag Trihydrate (Nexium) 20 Mg Capsule., 20 MG PO DAILY, CAP 05/07/15 Omeprazole* (Omeprazole*) 20 Mg Capsule.dr, 20 MG PO DAILY, CAP 05/07/15 Lorazepam* (Ativan*) 0.5 Mg Tablet, 0.5 MG PO HS PRN for ANXIETY, TAB 05/07/15 Terazosin Hcl* (Terazosin Hcl*) 5 Mg Capsule, 5 MG PO HS, CAP 04/01/15 Benazepril Hcl* (Benazepril Hcl*) 5 Mg Tablet, 5 MG PO DAILY, TAB 04/01/15 Aspirin* (Aspirin* Chew) 81 Mg Tab.chew, 81 MG PO DAILY, TAB.CHEW 04/01/15 Discontinued Scripts Atorvastatin Calcium* (Atorvastatin Calcium*) 20 Mg Tab, 40 MG PO DAILY@21 for 30 Days, 3 Refills Prov:Jonnie London DO 05/08/15 Clopidogrel Bisulfate (Clopidogrel) 75 Mg Tab, 75 MG PO DAILY, #30 CAP 1 Refill Prov:Jonnie London DO 04/02/15 Follow-up Plan In 1 week or as needed to Dr. Mar In 3 days or as needed to Dr. Padilla Primary Care Provider Gary Padilla MD Time spent on discharge: > 30 minutes Pending Labs Laboratory Tests Test 11/08/18 07:40 11/08/18 08:01 White Blood Count 7.9 10^3/ul (4.8-10.8) Red Blood Count 4.50 10^6/ul (4.70-6.10) Hemoglobin 12.6 g/dl (14.0-18.0) Hematocrit 38.9 % (42.0-52.0) Mean Corpuscular Volume 86.4 fl (82.0-101.0) Mean Corpuscular Hemoglobin 28.0 pg (29.0-33.0) Mean Corpuscular 32.4 g/dl (32.0-37.0) Hemoglobin Concent Red Cell Distribution Width 13.5 % (11.5-14.5) Platelet Count 145 10^3/UL (140-415) Mean Platelet Volume 11.1 fl (7.4-10.4) Immature Granulocytes % 0.300 % (0.001-0.429) Neutrophils % 68.9 % (39.0-77.0) Lymphocytes % 19.2 % (15.0-51.0) Monocytes % 7.6 % (0.0-11.0) Eosinophils % 3.6 % (0.0-7.0) Basophils % 0.4 % (0.0-2.0) Nucleated Red Blood Cells % 0.0 /100WBC (0.0-0.0) Immature Granulocytes # 0.020 10^3/ul (0.0-0.031) Neutrophils # 5.4 10^3/ul (1.6-7.5) Lymphocytes # 1.5 10^3/ul (0.8-2.9) Monocytes # 0.6 10^3/ul (0.3-0.9) Eosinophils # 0.3 10^3/ul (0.0-0.5) Basophils # 0.0 10^3/ul (0.0-0.1) Nucleated Red Blood Cells # 0.0 10^3/ul (0.0-0.0) Sodium Level 141 mmol/L (135-144) Potassium Level 4.0 mmol/L (3.5-5.1) Chloride Level 110 mmol/L (97-110) Carbon Dioxide Level 24 mmol/L (21-31) Anion Gap 7 (5-13) Blood Urea Nitrogen 10 mg/dl (7-20) Creatinine 0.91 mg/dl (0.61-1.24) Est Glomerular Filtrat > 60 mL/min (>60) Rate mL/min Glucose Level 99 mg/dl (70-220) Calcium Level 9.4 mg/dl (8.4-10.2) Total Bilirubin 1.0 mg/dl (0.2-1.3) Direct Bilirubin 0.00 mg/dl (0.00-0.20) Indirect Bilirubin 1.0 mg/dl (0-1.1) Aspartate Amino 19 IU/L (15-46) Transf (AST/SGOT) Alanine 30 IU/L (13-69) Aminotransferase (ALT/SGPT) Alkaline Phosphatase 46 IU/L (42-121) Total Protein 6.2 g/dl (6.1-8.1) Albumin 3.5 g/dl (3.3-4.9) Globulin 2.70 g/dl (1.3-3.2) Albumin/Globulin Ratio 1.29 GARY PADILLA MD Nov 08, 2018 15:23
--- NOTE | 2018-11-08 17:23 | RADRPT ---
Vent Rate: 78 bpm RR Interval: 772 msec KS Interval: 180 msec QRS Duration: 99 msec QT Interval: 398 msec QTC Interval: 453 msec P-R-T [place]: 50 - -19 - 47 degrees Sinus rhythm...normal P axis, V-rate 50- 99 Inferior infarct, old...Q >35mS, II III aVF Extensive anterior infarct, old...Q >35mS, V1-V6 Electronically Signed By: Viet Castro
== END 2018-11-08 17:39 | disposition home or self-care (01) | DRG 225 ==
LOC: E/R 13:22 → ICU 13:35 → TEL 11-06 17:57
PROVIDERS: ADMIT Family Medicine; ATTEND Family Medicine
PROC: 4A023N7 Measurement of Cardiac Sampling and Pressure, Left Heart, Percutaneous Approach (ICD-10-PCS; 2018-11-05)
PROC: B211YZZ Fluoroscopy of Multiple Coronary Arteries using Other Contrast (ICD-10-PCS; 2018-11-05)
PROC: B215YZZ Fluoroscopy of Left Heart using Other Contrast (ICD-10-PCS; 2018-11-05)
PROC: 02HK3KZ Insertion of Defibrillator Lead into Right Ventricle, Percutaneous Approach (ICD-10-PCS; 2018-11-07)
PROC: 0JH608Z Insertion of Defibrillator Generator into Chest Subcutaneous Tissue and Fascia, Open Approach (ICD-10-PCS; principal; 2018-11-07 15:30)
DX: I47.2 Ventricular tachycardia (principal); G93.1 Anoxic brain damage, not elsewhere classified; E11.9 Type 2 diabetes mellitus without complications; I25.119 Atherosclerotic heart disease of native coronary artery with unspecified angina pectoris; E78.5 Hyperlipidemia, unspecified; I25.5 Ischemic cardiomyopathy; E66.9 Obesity, unspecified; Z68.34 Body mass index [BMI] 34.0-34.9, adult; I50.9 Heart failure, unspecified; J44.9 Chronic obstructive pulmonary disease, unspecified; F41.9 Anxiety disorder, unspecified; R10.13 Epigastric pain; N40.0 Benign prostatic hyperplasia without lower urinary tract symptoms; M21.42 Flat foot [pes planus] (acquired), left foot; M21.41 Flat foot [pes planus] (acquired), right foot; M54.16 Radiculopathy, lumbar region; B35.1 Tinea unguium; G47.33 Obstructive sleep apnea (adult) (pediatric); Z87.891 Personal history of nicotine dependence; Z95.5 Presence of coronary angioplasty implant and graft
CPT/HCPCS: 33249; 71045; 80048; 80053; 80061; 80162; 82550; 82553; 83735; 83880; 84439; 84443; 84484; 85025; 85610; 93005; 93306; 93458; C1722; C1760; C1887; C1894; C1895; J0282; J0583; J0690; J1644; J2250; J2270; J3010; J3475; J7030; J7040; J7060; Q9967

== ENCOUNTER 2018-11-18 06:54 | Observation (INO) | payer OTHER ==
[2018-11-18] VITALS (20 sets, daily range): BP systolic 100–133; BP diastolic 62–80; PULSE 70–89; RESP 13–20; Ht 182.9 cm; Wt 123.8 kg
[~2018-11-18] VITALS: Ht 182.9 cm; Wt 123.8 kg
[~2018-11-18 06:54] MED LIST changes: +ASPI-817 PO; -ASPI-903 PO; +BENA20TA4 PO; -BENA5TAB33 PO; +CLOP75TA19 PO; -CLOP75TA27 PO; +DEXL30CA2 PO; +ERGO500013 PO; -ERGO500014 PO; -ESOM20CA PO; -LORA-441 PO; +LORA0.5T PO; -OMEP20CA16 PO; +TAMS-14 PO; -TERA5CAP3 PO; +ZOLP5TAB PO
[2018-11-18] MEDS ORDERED: LACTATED RINGER'S 1,000 ML IV SCH (07:30)
[2018-11-18] MEDS ORDERED: LORA0.5T PO (07:44)
[2018-11-18] MEDS ORDERED: DEXL30CA2 PO (07:44)
[2018-11-18] MEDS ORDERED: METO100T11 ORAL (08:21)
[2018-11-18] MEDS ORDERED: TERA5CAP3 PO (08:21)
[2018-11-18] MEDS ORDERED: POLYMYXIN/BACITRACIN 1L IRRIG ONE (09:09)
--- NOTE | 2018-11-18 09:52 | PREAC ---
Date/Time of Note Date/Time of Note DATE: 11/18/18 TIME: 09:51 Anesthesia Eval and Record Evaluation Time Pre-Procedure Interview DATE: 11/18/18 TIME: 09:51 Age 58 Sex male NPO: 8 hrs Preoperative diagnosis lead revision Planned procedure AICD ICD lead revision Past Medical History Past Medical History: Includes Cardio: Dyslipidemia, [place], CAD, PTCA/Stent, PPM/AICD, CHF GI: Morbid obesity Surgery & Anesthesia Issues No known issue Meds Anticoagulation: No Beta Rima within 24 hr: No Reason Beta Rima not given: Pt. not on B-Rima Reported Medications Metoprolol Tartrate (Metoprolol Tartrate) 100 Mg Tablet, 1 TAB ORAL BID 11/18/18 Terazosin Hcl* (Terazosin Hcl*) 5 Mg Capsule, 5 MG PO HS, CAP 11/18/18 Dexlansoprazole (Dexilant) 30 Mg Cap.drjoanne, 30 MG PO DAILY, #30 CAP 11/18/18 Lorazepam* (Lorazepam*) 0.5 Mg Tablet, 0.5 MG PO HS PRN for ANXIETY, TAB 11/18/18 Lorazepam* (Lorazepam*) 0.5 Mg Tablet, 0.5 MG PO NEEDED, TAB 11/05/18 Ergocalciferol (Vitamin D2) (VITAMIN D2) 50,000 Unit Capsule, 41974 UNIT PO Q15 D, CAP LAST TAKEN 10/24/18 11/05/18 Clopidogrel Bisulfate* (Clopidogrel Bisulfate*) 75 Mg Tablet, 75 MG PO DAILY, #30 TAB 11/05/18 Benazepril Hcl* (Benazepril Hcl*) 20 Mg Tablet, 5 MG PO DAILY, #30 TAB 11/05/18 Tamsulosin Hcl* (Flomax*) 0.4 Mg Cap.er.24h, 0.4 MG PO DAILY, CAP 11/05/18 Atorvastatin Calcium* (Atorvastatin Calcium*) 20 Mg Tablet, 20 MG PO QHS, #30 TAB 11/05/18 Metoprolol Tartrate* (Lopressor*) 100 Mg Tablet, 100 MG PO BID, #60 TAB 11/05/18 Aspirin* (Aspirin* EC) 81 Mg Tablet., 81 MG PO DAILY, TAB 11/05/18 Discontinued Reported Medications Zolpidem Tartrate* (Ambien*) 5 Mg Tablet, 5 MG PO QHS PRN for NEEDED, #30 TAB 11/05/18 Dexlansoprazole (Dexilant) 30 Mg Ruddy., 30 MG PO NEEDED, #30 CAP 11/05/18 Current Medications Sodium Chloride 1,000 ml @ 20 mls/hr Q24H IV ; Start 11/18/18 at 09:00 Meds reviewed: Yes Allergies Coded Allergies: No Known Allergy (Unverified , 11/18/18) Allergies Reviewed: Yes Labs/Studies Labs Reviewed: Reviewed by anesthesiologist Result Diagram: 11/18/18 0720 11/18/18 0720 Laboratory Tests 11/18/18 07:20 test: N/A Studies: ECG, CXR, 2D Echo (EF 25%) Pre-procedure Exam Last vitals Vital Signs Date Temp Pulse Resp B/P (MAP) Pulse Ox O2 O2 Flow FiO2 Time Delivery Rate 11/18/18 16 126/78 97 07:56 (94) Airway: Adequate mouth opening Mallampati: Mallampati II Teeth: Normal Lung: Normal Heart: Normal ASA Physical Status ASA physical status: 3 Emergency: None Planned Anesthetic General/MAC: MAC Pre-operative Attestations Prior to commencing anesthesia and surgery, the patient was re-evaluated, there was verification of: *The patient's identity *The results of appropriate recent lab work and preoperative vital signs *The above evaluation not changing prior to induction *Anesthetic plan, risk benefits, alternative and complications discussed with patient/family; questions answered; patient/family understands, accepts and wishes to proceed. PETE CHINO November 18, 2018 09:52
[2018-11-18] MEDS ORDERED: SOD CHLORIDE 0.9% 500 ML ONE (09:57)
[2018-11-18] MEDS ORDERED: LIDOCAINE 1%/EPI (1:100,000) (MDV) 20 ML ONE (09:58)
[2018-11-18] MEDS ORDERED: PROPOFOL 200 MG INJ ONE (10:00)
[2018-11-18] MEDS ORDERED: FENTAnyl 50 MCG/ML VIAL ONE (10:00)
[2018-11-18] MEDS ORDERED: MIDAZOLAM 1 MG/ML 2 ML INJ ONE (10:00)
[2018-11-18] MEDS ORDERED: CEFAZOLIN 1 GM/50 ML (PMX) 100 ML IVPB ONE (10:12)
[2018-11-18] MEDS ORDERED: CEFAZOLIN 2 GM/50 ML (PMX) 50 ML IVPB SCH (10:30)
[2018-11-18] MEDS ORDERED: FENTAnyl 50 MCG/ML VIAL IV PRN ×2 (11:00)
[2018-11-18] MEDS ORDERED: hydrALAzine 20 MG INJ IV PRN (11:00)
[2018-11-18] MEDS ORDERED: LABETALOL HCL 20MG INJ IV PRN (11:00)
--- NOTE | 2018-11-18 11:18 | PAC ---
Date/Time of Note Date/Time of Note DATE: 11/18/18 TIME: 11:17 Post-Anesthesia Notes Post-Anesthesia Note Last documented vital signs Vital Signs Date Temp Pulse Resp B/P (MAP) Pulse Ox O2 O2 Flow FiO2 Time Delivery Rate 11/18/18 16 126/78 97 07:56 (94) Activity: WNL Respiratory function: WNL Cardiovascular function: WNL Mental status: Baseline Pain reasonably controlled: Yes Hydration appropriate: Yes Nausea/Vomiting absent: Yes Comments BP 125/79 spo2 100% HR 90 RR 16 Temp 98.2F PETE CHINO November 18, 2018 11:18
--- NOTE | 2018-11-18 11:25 | OPR ---
Date/Time of Note Date/Time of Note DATE: 11/18/18 TIME: 11:20 Operative Report Procedure Date: November 18, 2018 Preoperative Diagnosis ICD lead microdislodgment Postoperative Diagnosis same Operation/Procedure Performed ICD RV lead reposition Surgeon see signature line Utility Super[employer] ganesh Anesthesia Type: other Estimated Blood Loss: minimal Transfusion none Specimen none Grafts/Implants none Complications none Procedure Description Operative\Procedure NOTE: Procedure performed: ICD RV lead revision/reposition Intracardiac electrocardiogram and defibrillator threshold testing. Indication: 58-year-old gentleman with history of severe ischemic cardiomyopathy ejection fraction of 20 to 25% who underwent ICD placement couple of weeks ago for secondary prevention due to his sustained V. tach requiring cardioversion. Postop RV lead wires [place] threshold however on the office follow-up done 2 days ago noted that the patient ICD was not capturing anymore. He was recommended to undergo lead revision replacement/repositioning and ICD defibrillator threshold testing Anesthesia: Per anesthesiologist Employee Welfare Manager: Trudy Villeda MD Procedure in detail: Written informed consent was obtained after risks benefits and alternatives discussed with the patient and family in detail. Risks including but not limited to risk of infection, bleeding complications, anesthesia related complications, PA, CVA, perforation, pneumothorax hemothorax, etc discussed with pt in detail. Patient was brought into into the Home Demonstration Agent and placed in supine position. sedation was given. Right and left chest area was prepped and draped in regular sterile fashion. Left chest area was anesthetized with 1% lidocaine with epi. A 4 cm incision was made over the previous scar. Blunt dissection was carried out and the previous ICD was removed. Defibrillator thresholds were checked which again showed no RV capture. Then the sutures were removed. RV lead was then unscrewed and repositioned to a different position once Position was found it was curled into the place. Thresholds were checked multiple times which showed all excellent threshold. Lead was then tied down using 0 Ethibond. Pocket was irrigated with antibiotic solution. The lead was checked again which showed good thresholds. Then leads were connected into the device. Device was placed into the pocket and sutured using 0 Ethibond suture. At this point defibrillator threshold testing was performed. First external defibrillator was checked as 1 J. Then through the device patient was induced into V. fib using the method of shock on T. The device appropriately detected the V. fib and successfully cardioverted the patient back into sinus/paced rhythm at 17.5 J. Pocket was irrigated again using antibiotic solution. Wound was closed with 1 layer of 2.0 Vicryl and 2 layers of 3.0 Vicryl. Steri-Strip was applied and pressure dressing was applied. Patient tolerated procedure well with no complication and was transferred to the recovery room in stable condition. Immediate complication: none Please see physical chart for details regarding pacemaker information and thresholds. Conclusions: Revision/repositioning of the RV lead of the ICD and defibrillator threshold testing using [employer] device TRUDY VILLEDA MD November 18, 2018 11:25
[2018-11-18] MEDS ORDERED: morphine 2 MG INJ IV PRN (11:30)
[2018-11-18] MEDS ORDERED: LORAZEPAM 0.5 MG TAB PO PRN (11:30)
[2018-11-18] MEDS: CEFAZOLIN 1 GM/50 ML (PMX) 50 ML IVPB SCH ×2 (13:57→21:15)
[2018-11-18] MEDS: SOD CHLORIDE 0.9% 1,000 ML IV SCH (14:00)
[2018-11-18] MEDS ORDERED: TERAZOSIN 5 MG CAP PO SCH (21:00)
[2018-11-18] MEDS ORDERED: ATORVASTATIN 20 MG TAB PO SCH (21:00)
[2018-11-18] MEDS: METOPROLOL 100 MG TAB PO SCH (21:18)
[2018-11-18] MEDS: ACETAMINOPHEN 500 MG TAB PO PRN (22:15)
--- NOTE | 2018-11-18 22:24 | HP ---
Date/Time of Note Date/Time of Note DATE: 11/18/18 TIME: 22:12 Assessment/Plan VTE Prophylaxis Risk score (from Nsg)>0 risk: 6 SCD applied (from Ns): Yes SCD contraindicated: other (on) Pharmacological prophylaxis: NA/contraindicated, other (Started after 1 day.) Pharm contraindication: low risk/ambulating Lines/Catheters IV Catheter Type (from Nrs): Peripheral IV Central line still needed: No Urinary Cath still in place: No Reason Cath still needed: other (indicate) (human resource advisor need.) Assessment/Plan Assessment/Plan 1: S/P dislodgement of the electrode of icd. S/P correction. 2. Anoxic or hypoxic encephalopathy exact duration unknown. 3. Ischemic heart disease angina.S/P recurrent WI's and stenting. Ischemic cardiomyopathy with low LVEF 20-25%; 4. Right shoulder pain. 5. Dyslipidemia with almost perfect lipid panel except low HDL in the exam as an outpatient about a month ago. 6. Anxiety disorder 7. Flat feet. 8. BPH 9. Lumbosacral radiculopathy with mainly left L4-5 and S1 radiculopathy 10. COPD with a history of smoking quit almost 8+ years ago. 11. Obesity with snoring and apnea hypopnea syndrome 12. Onychomycosis 13.History of gastroesophageal reflux and dysphagia Patient Condition: Result Diagram: 11/18/18 0720 11/18/18 0720 Results 24hrs Laboratory Tests Test 11/18/18 07:20 White Blood Count 8.8 Red Blood Count 4.62 L Hemoglobin 12.8 L Hematocrit 40.7 L Mean Corpuscular Volume 88.1 Mean Corpuscular Hemoglobin 27.7 L Mean Corpuscular Hemoglobin Concent 31.4 L Red Cell Distribution Width 13.2 Platelet Count 250 # Mean Platelet Volume 10.2 Immature Granulocytes % 0.600 H Neutrophils % 62.8 Lymphocytes % 26.9 Monocytes % 6.0 Eosinophils % 3.0 Basophils % 0.7 Nucleated Red Blood Cells % 0.0 Immature Granulocytes # 0.050 H Neutrophils # 5.5 Lymphocytes # 2.4 Monocytes # 0.5 Eosinophils # 0.3 Basophils # 0.1 Nucleated Red Blood Cells # 0.0 Prothrombin Time 12.6 Prothrombin Time Ratio 1.0 INR International Normalized Ratio 0.93 Activated Partial Thromboplast Time 26.2 Sodium Level 143 Potassium Level 4.4 Chloride Level 108 Carbon Dioxide Level 27 Anion Gap 8 Blood Urea Nitrogen 13 Creatinine 1.05 Est Glomerular Filtrat Rate mL/min > 60 Glucose Level 124 Calcium Level 9.8 Total Bilirubin 0.4 Direct Bilirubin 0.00 Indirect Bilirubin 0.4 Aspartate Amino Transf (AST/SGOT) 22 Alanine Aminotransferase (ALT/SGPT) 31 Alkaline Phosphatase 50 Total Protein 6.7 Albumin 4.0 Globulin 2.70 Albumin/Globulin Ratio 1.48 HPI/ROS Admit Date/Time Admit Date/Time November 18, 2018 at 12:15 Hx of Present Illness Patient was evaluated by housekeeping attendant Dr. Villeda, and found that the patient's cardiac electrode is not capturing. It was indication to admit the patient to hospital to reposition the electrode. No loss of consciousness no falls no fever no chills no nausea no vomiting. ROS Constitutional: improved; No no complaints, No chills, No diaphoresis, No disoriented, No fatigue, No febrile, No nausea, No poor po, No weight change, No other Eyes: No no complaints, No pain, No discharge, No redness, No visual change, No other ENT: No no complaints, No bleeding, No pain, No congestion, No discharge, No dysphagia, No sore throat, No other Respiratory: No no complaints, No pain, No cough, No pleuritic pain, No shortness of breath, No sputum, No wheezing, No other Cardiovascular: No no complaints, No chest pain, No edema, No lightheadedness, No orthopenea, No palpitations, No paroxysmal nocturnal dyspnea, No other Gastrointestinal: No no complaints, No pain, No blood, No constipation, No decreased appetite, No diarrhea, No flatus, No nausea, No passing stool, No vomiting, No other Genitourinary: dysuria; No no complaints, No bleeding, No discharge, No flank pain, No hematuria, No other Musculoskeletal: No no complaints, No back pain, No bone/joint pain, No neck pain, No restricted range of motion, No swelling, No other Skin: No no complaints, No bruising, No erythema, No laceration, No pruritis, No rash, No skin lesions, No other Neurologic: No no complaints, No confusion, No dizziness, No focal-weakness, No headache, No syncope, No seizure, No other Endocrine: No no complaints, No polyuria, No polydypsia, No dry skin, No temp intolerance, No weight change, No other Lymphatic: No no complaints, No adenopathy, No tender nodes, No lymphadema, No other Psychological: anxiety; No no complaints, No nl mood/affect, No confusion, No depression, No suicidal, No other Immunologic: No no complaints, No immunodeficiency, No pruritis, No rhinitis, No urticaria, No other PMH/Family/Social Past Medical History Medical History: angina, congestive heart failure, GERD Medications Current Medications Sodium Chloride 1,000 ml @ 20 mls/hr Q24H IV Last administered on 11/18/18 14:00; Admin Dose 20 MLS/HR; Start 11/18/18 at 09:00 Morphine Sulfate (morphine) 1 mg Q1H PRN IV PAIN Last administered on 11/18/18 16:10; Admin Dose 1 MG; Start 11/18/18 at 11:30 Cefazolin Sodium 50 ml @ 100 mls/hr Q8 IVPB Last administered on 11/18/18 21:15; Admin Dose 100 MLS/HR; Start 11/18/18 at 14:00; Stop 11/19/18 at 06:29 Aspirin (Halfprin) 81 mg DAILY PO ; Start 11/19/18 at 09:00 Atorvastatin Calcium (Lipitor) 20 mg QHS PO Last administered on 11/18/18at 21:17; Admin Dose 20 MG; Start 11/18/18 at 21:00 Benazepril HCl (Lotensin) 5 mg DAILY PO ; Start 11/19/18 at 09:00 Clopidogrel Bisulfate (plaVIX) 75 mg DAILY PO ; Start 11/19/18 at 09:00 Lorazepam (Ativan) 0.5 mg HS PRN PO ANXIETY; Start 11/18/18 at 11:30 Metoprolol Tartrate (Lopressor) 100 mg BID PO Last administered on 11/18/18 21:18; Admin Dose 100 MG; Start 11/18/18 at 21:00 Tamsulosin HCl (Flomax) 0.4 mg DAILY PO ; Start 11/19/18 at 09:00 Terazosin HCl (Hytrin) 5 mg HS PO Last administered on 11/18/18 21:19; Admin Dose 5 MG; Start 11/18/18 at 21:00 Pantoprazole Sodium (Protonix) 20 mg DAILY@0600 PO ; Start 11/19/18 at 06:00 Acetaminophen (Tylenol Tab) 500 mg Q6H PRN PO MILD PAIN(1-3)OR ELEVATED TEMP; Start 11/18/18 at 21:30 Coded Allergies: No Known Allergy (Unverified , 11/18/18) Past Surgical History Past Surgical Hx: no surgical history, angioplasty Social History Alcohol Use: none Smoking Status: Former smoker Drug Use: none Exam/Review of Systems Vital Signs Vitals Vital Signs Date Temp Pulse Resp B/P (MAP) Pulse Ox O2 O2 Flow FiO2 Time Delivery Rate 11/18/18 70 20:00 11/18/18 98.5 18 120/74 94 19:33 (89) 11/18/18 Room Air 15:45 11/18/18 2.0 14:00 Exam Constitutional: alert, oriented, well developed, distress; No non-verbal, No frail, No other Psych: no complaints, nl mood/affect, anxiety; No confusion, No depression, No suicidal, No other Head: normocephalic, atraumatic; No lacerations, No hematomas, No other Eyes: EOMI, nl lids, PERRL; No nl conjunctiva, No nl sclera, No icteric, No fundi, disc, No other ENMT: nl external ears & nose, nl lips & teeth, nl nasal mucosa & septum, tympanic membranes; No mucosa pink and moist, No intubated, No other Neck: supple, non-tender, thyromegaly; No jvd, No bruits, No masses, No nuchal rigidity, No other Respiratory: clear to auscultation, normal air movement, diminished breath sounds; No congested cough, No crackles/rales, No intercostal retraction, No labored breathing, No respirations, No tactile fremitus, No wheezing, No other Cardiovascular: regular rate and rhythm, nl pulses, systolic murmur, other (Status post ICD implantation revision and correction of a positional electrode. With reassessment of the ICD parameters.); No bruits, No diastolic murmur, No edema, No gallop, No irregular rhythm, No jugular venous distention (JVD), No murmurs/extra sounds, No rub, No S3, No S4 Gastrointestinal: soft, nl liver, spleen, non-tender, bowel sounds; No ascites, No distended, No firm, No hepatomegaly, No mass, No rebound or guarding, No splenomegaly, No surgical scars, No tender, No other Genitourinary - Male: nl penis, nl scrotum; No CVA tenderness, No discharge, No other Genitourinary - Female: No nl adnexae, No nl external genitalia, No CMT, No CVA tenderness, No uterus, No other Musculoskeletal: nl extremities to inspection, joint tenderness, muscle tone, muscle weakness; No nl gait and stance, No range of motion, No spine non-tender, No swelling, No other Neurological: GIFT PACKER II-XII intact, nl speech, nl strength; No nl mental status, No confused, No DTR's symmetric, No focal weakness, No lethargic, No numbness, No reflexes, No unresponsive, No other Skin: nl turgor; No rash or lesions, No diaphoresis, No ecchymosis, No laceration, No puncture, No other Lymph: No nl lymph nodes, No enlarged, No nontender, No other PILGARY LOPEZ MD November 18, 2018 22:22
[2018-11-19] VITALS (7 sets, daily range): BP systolic 109–124; BP diastolic 69–75; PULSE 62–97; RESP 18
[2018-11-19] MEDS: CEFAZOLIN 1 GM/50 ML (PMX) 50 ML IVPB SCH (05:35)
[2018-11-19] MEDS: ACETAMINOPHEN 500 MG TAB PO PRN (05:35)
[2018-11-19] MEDS ORDERED: PANTOPRAZOLE SODIUM 20 MG TABEC PO SCH (06:00)
[2018-11-19] MEDS ORDERED: TAMSULOSIN (SR) 0.4 MG CAP PO SCH (09:00)
[2018-11-19] MEDS ORDERED: ASPIRIN (EC) 81 MG TAB PO SCH (09:00)
[2018-11-19] MEDS: SOD CHLORIDE 0.9% 1,000 ML IV SCH (09:00)
[2018-11-19] MEDS ORDERED: CLOPIDOGREL 75 MG TAB PO SCH (09:00)
[2018-11-19] MEDS ORDERED: BENAZEPRIL 5 MG TAB PO SCH (09:00)
[2018-11-19] MEDS: METOPROLOL 100 MG TAB PO SCH (09:04)
--- NOTE | 2018-11-19 11:41 | CONS ---
Consult Date/Type/Reason Admit Date/Time November 18, 2018 at 12:15 Initial Consult Date Type of Consultation: CV Date/Time of Note DATE: 11/19/18 TIME: 11:39 Subjective Cardiology follow-up progress note Subjective: Discussed with staff telemetry was reviewed.. Patient with short runs of nonsustained V. tach which appeared to be asymptomatic. Patient has been compliant with his sling now. According to the he stops breathing at night and has large snoring. Minimal chest wall tenderness. No palpitation no PND orthopnea. Objective: General: no acute distress HEENT: NC/AT. pupils are equal. round. NECK: NO JVD. no stridor. CV: RRR. systolic murmur; no gallop or rubs. PULM: no wheezing or rhonchi. GI: SOFT, NT, ND, no rebound or guarding Extremity: trace B/L LE edema. no clubbing. neuro: awake and alert, OX3. Psych: calm and pleasant rectal: deferred Chest: Status post ICD. No bleeding or hematoma Objective Vitals Vital Signs Date Temp Pulse Resp B/P (MAP) Pulse Ox O2 O2 Flow FiO2 Time Delivery Rate 11/19/18 98.0 70 18 124/75 98 11:32 (91) 11/19/18 Nasal 2.0 08:40 Cannula Intake and Output 11/18/18 11/18/18 11/19/18 1515:00 23:00 07:00 IntakeIntake Total 670 ml 320 ml OutputOutput Total 600 ml BalanceBalance 70 ml 320 ml Results/Medications Result Diagram: 11/19/18 0533 11/19/18 0533 Results 24 hrs Laboratory Tests Test 11/19/18 05:33 White Blood Count 8.3 Red Blood Count 4.21 L Hemoglobin 11.7 L Hematocrit 36.8 L Mean Corpuscular Volume 87.4 Mean Corpuscular Hemoglobin 27.8 L Mean Corpuscular Hemoglobin Concent 31.8 L Red Cell Distribution Width 13.3 Platelet Count 215 Mean Platelet Volume 10.1 Immature Granulocytes % 0.400 Neutrophils % 63.8 Lymphocytes % 26.5 Monocytes % 6.4 Eosinophils % 2.4 Basophils % 0.5 Nucleated Red Blood Cells % 0.0 Immature Granulocytes # 0.030 Neutrophils # 5.3 Lymphocytes # 2.2 Monocytes # 0.5 Eosinophils # 0.2 Basophils # 0.0 Nucleated Red Blood Cells # 0.0 Sodium Level 141 Potassium Level 4.1 Chloride Level 108 Carbon Dioxide Level 29 Anion Gap 4 L Blood Urea Nitrogen 12 Creatinine 0.86 Est Glomerular Filtrat Rate mL/min > 60 Glucose Level 112 Calcium Level 9.0 Total Bilirubin 0.5 Direct Bilirubin 0.00 Indirect Bilirubin 0.5 Aspartate Amino Transf (AST/SGOT) 20 Alanine Aminotransferase (ALT/SGPT) 39 Alkaline Phosphatase 50 B-Type Natriuretic Peptide 108 Total Protein 6.1 Albumin 3.4 Globulin 2.70 Albumin/Globulin Ratio 1.25 Home Meds Reported Medications Metoprolol Tartrate (Metoprolol Tartrate) 100 Mg Tablet, 1 TAB ORAL BID 11/18/18 Terazosin Hcl* (Terazosin Hcl*) 5 Mg Capsule, 5 MG PO HS, CAP 11/18/18 Dexlansoprazole (Dexilant) 30 Mg Cap.drjoanne, 30 MG PO DAILY, #30 CAP 11/18/18 Lorazepam* (Lorazepam*) 0.5 Mg Tablet, 0.5 MG PO HS PRN for ANXIETY, TAB 11/18/18 Lorazepam* (Lorazepam*) 0.5 Mg Tablet, 0.5 MG PO NEEDED, TAB 11/05/18 Ergocalciferol (Vitamin D2) (VITAMIN D2) 50,000 Unit Capsule, 91986 UNIT PO Q15 D, CAP LAST TAKEN 10/24/18 11/05/18 Clopidogrel Bisulfate* (Clopidogrel Bisulfate*) 75 Mg Tablet, 75 MG PO DAILY, #30 TAB 11/05/18 Benazepril Hcl* (Benazepril Hcl*) 20 Mg Tablet, 5 MG PO DAILY, #30 TAB 11/05/18 Tamsulosin Hcl* (Flomax*) 0.4 Mg Cap.er.24h, 0.4 MG PO DAILY, CAP 11/05/18 Atorvastatin Calcium* (Atorvastatin Calcium*) 20 Mg Tablet, 20 MG PO QHS, #30 TAB 11/05/18 Metoprolol Tartrate* (Lopressor*) 100 Mg Tablet, 100 MG PO BID, #60 TAB 11/05/18 Aspirin* (Aspirin* EC) 81 Mg Tablet.dr, 81 MG PO DAILY, TAB 11/05/18 Discontinued Reported Medications Zolpidem Tartrate* (Ambien*) 5 Mg Tablet, 5 MG PO QHS PRN for NEEDED, #30 TAB 11/05/18 Dexlansoprazole (Dexilant) 30 Mg Cap., 30 MG PO NEEDED, #30 CAP 11/05/18 Medications Current Medications Sodium Chloride 1,000 ml @ 20 mls/hr Q24H IV Last administered on 11/18/18 14:00; Admin Dose 20 MLS/HR; Start 11/18/18 at 09:00 Morphine Sulfate (morphine) 1 mg Q1H PRN IV PAIN Last administered on 11/18/18 16:10; Admin Dose 1 MG; Start 11/18/18 at 11:30 Aspirin (Halfprin) 81 mg DAILY PO Last administered on 11/19/18 09:04; Admin Dose 81 MG; Start 11/19/18 at 09:00 Atorvastatin Calcium (Lipitor) 20 mg QHS PO Last administered on 11/18/18 21:17; Admin Dose 20 MG; Start 11/18/18 at 21:00 Benazepril HCl (Lotensin) 5 mg DAILY PO Last administered on 11/19/18 09:04; Admin Dose 5 MG; Start 11/19/18 at 09:00 Clopidogrel Bisulfate (plaVIX) 75 mg DAILY PO Last administered on 11/19/18 09:04; Admin Dose 75 MG; Start 11/19/18 at 09:00 Lorazepam (Ativan) 0.5 mg HS PRN PO ANXIETY; Start 11/18/18 at 11:30 Metoprolol Tartrate (Lopressor) 100 mg BID PO Last administered on 11/19/18 09:04; Admin Dose 100 MG; Start 11/18/18 at 21:00 Tamsulosin HCl (Flomax) 0.4 mg DAILY PO Last administered on 11/19/18 09:04; Admin Dose 0.4 MG; Start 11/19/18 at 09:00 Terazosin HCl (Hytrin) 5 mg HS PO Last administered on 11/18/18 21:19; Admin Dose 5 MG; Start 11/18/18 at 21:00 Pantoprazole Sodium (Protonix) 20 mg DAILY@0600 PO Last administered on 11/19/18 05:38; Admin Dose 20 MG; Start 11/19/18 at 06:00 Acetaminophen (Tylenol Tab) 500 mg Q6H PRN PO MILD PAIN(1-3)OR ELEVATED TEMP Last administered on 11/19/18at 05:35; Admin Dose 500 MG; Start 11/18/18 at 21:30 Assessment/Plan Hospital Course (Demo Recall) 1. Ischemic cardiomyopathy/congestive heart failure 2. Sustained VT 3. Status post ICD with lead revision 4. Coronary artery disease 5. History of PCI 6. Dyslipidemia 7. Hypertension 8. Likely sleep apnea Recommendation: We will continue with the current cardiac care DC planning today Patient will be scheduled for outpatient ICD check and wound check Consider outpatient sleep study to rule out sleep apnea. Thank you TRUDY BENITEZ MD November 19, 2018 11:41
--- NOTE | 2018-11-19 19:00 | DS ---
Date/Time of Note Date/Time of Note DATE: 11/19/18 TIME: 18:58 Discharge Summary Admission/Discharge Info Admit Date/Time November 18, 2018 at 12:15 Discharge Date/Time November 19, 2018 at 15:45 Discharge Diagnosis 1: S/P dislodgement of the electrode of icd. S/P correction. 2. Anoxic or hypoxic encephalopathy exact duration unknown. 3. Ischemic heart disease angina.S/P recurrent VT's and stenting. Ischemic cardiomyopathy with low LVEF 20-25%; 4. Right shoulder pain. 5. Dyslipidemia with almost perfect lipid panel except low HDL in the exam as an outpatient about a month ago. 6. Anxiety disorder 7. Flat feet. 8. BPH 9. Lumbosacral radiculopathy with mainly left L4-5 and S1 radiculopathy 10. COPD with a history of smoking quit almost 8+ years ago. 11. Obesity with snoring and apnea hypopnea syndrome 12. Onychomycosis 13.History of gastroesophageal reflux and dysphagia Patient Condition: Guarded Hx of Present Illness Patient was evaluated by timber management professor Dr. Villeda, and found that the patient's cardiac electrode is not capturing. It was indication to admit the patient to hospital to reposition the electrode. No loss of consciousness no falls no fever no chills no nausea no vomiting. Hospital Course After performing repositioning of the catheter and adjustment of the parameters of ICD the patient's plan to discharge with outpatient follow-up in [address] Padilla in 10 days to timber management professor. Home Meds Reported Medications Metoprolol Tartrate (Metoprolol Tartrate) 100 Mg Tablet, 1 TAB ORAL BID 11/18/18 Terazosin Hcl* (Terazosin Hcl*) 5 Mg Capsule, 5 MG PO HS, CAP 11/18/18 Dexlansoprazole (Dexilant) 30 Mg Cap., 30 MG PO DAILY, #30 CAP 11/18/18 Lorazepam* (Lorazepam*) 0.5 Mg Tablet, 0.5 MG PO HS PRN for ANXIETY, TAB 11/18/18 Lorazepam* (Lorazepam*) 0.5 Mg Tablet, 0.5 MG PO NEEDED, TAB 11/05/18 Ergocalciferol (Vitamin D2) (VITAMIN D2) 50,000 Unit Capsule, 96923 UNIT PO Q15 D, CAP LAST TAKEN 10/24/18 11/05/18 Clopidogrel Bisulfate* (Clopidogrel Bisulfate*) 75 Mg Tablet, 75 MG PO DAILY, #30 TAB 11/05/18 Benazepril Hcl* (Benazepril Hcl*) 20 Mg Tablet, 5 MG PO DAILY, #30 TAB 11/05/18 Tamsulosin Hcl* (Flomax*) 0.4 Mg Cap.er.24h, 0.4 MG PO DAILY, CAP 11/05/18 Atorvastatin Calcium* (Atorvastatin Calcium*) 20 Mg Tablet, 20 MG PO QHS, #30 TAB 11/05/18 Metoprolol Tartrate* (Lopressor*) 100 Mg Tablet, 100 MG PO BID, #60 TAB 11/05/18 Aspirin* (Aspirin* EC) 81 Mg Tablet., 81 MG PO DAILY, TAB 11/05/18 Discontinued Reported Medications Zolpidem Tartrate* (Ambien*) 5 Mg Tablet, 5 MG PO QHS PRN for NEEDED, #30 TAB 11/05/18 Dexlansoprazole (Dexilant) 30 Mg Cap.mp, 30 MG PO NEEDED, #30 CAP 11/05/18 Primary Care Provider Regulo Padilla MD Time spent on discharge: < 30 minutes Pending Labs Laboratory Tests Test 11/19/18 05:33 White Blood Count 8.3 10^3/ul (4.8-10.8) Red Blood Count 4.21 10^6/ul (4.70-6.10) Hemoglobin 11.7 g/dl (14.0-18.0) Hematocrit 36.8 % (42.0-52.0) Mean Corpuscular Volume 87.4 fl (82.0-101.0) Mean Corpuscular Hemoglobin 27.8 pg (29.0-33.0) Mean Corpuscular Hemoglobin Concent 31.8 g/dl (32.0-37.0) Red Cell Distribution Width 13.3 % (11.5-14.5) Platelet Count 215 10^3/UL (140-415) Mean Platelet Volume 10.1 fl (7.4-10.4) Immature Granulocytes % 0.400 % (0.001-0.429) Neutrophils % 63.8 % (39.0-77.0) Lymphocytes % 26.5 % (15.0-51.0) Monocytes % 6.4 % (0.0-11.0) Eosinophils % 2.4 % (0.0-7.0) Basophils % 0.5 % (0.0-2.0) Nucleated Red Blood Cells % 0.0 /100WBC (0.0-0.0) Immature Granulocytes # 0.030 10^3/ul (0.0-0.031) Neutrophils # 5.3 10^3/ul (1.6-7.5) Lymphocytes # 2.2 10^3/ul (0.8-2.9) Monocytes # 0.5 10^3/ul (0.3-0.9) Eosinophils # 0.2 10^3/ul (0.0-0.5) Basophils # 0.0 10^3/ul (0.0-0.1) Nucleated Red Blood Cells # 0.0 10^3/ul (0.0-0.0) Sodium Level 141 mmol/L (135-144) Potassium Level 4.1 mmol/L (3.5-5.1) Chloride Level 108 mmol/L (97-110) Carbon Dioxide Level 29 mmol/L (21-31) Anion Gap 4 (5-13) Blood Urea Nitrogen 12 mg/dl (7-20) Creatinine 0.86 mg/dl (0.61-1.24) Est Glomerular Filtrat Rate mL/min > 60 mL/min (>60) Glucose Level 112 mg/dl (70-220) Calcium Level 9.0 mg/dl (8.4-10.2) Total Bilirubin 0.5 mg/dl (0.2-1.3) Direct Bilirubin 0.00 mg/dl (0.00-0.20) Indirect Bilirubin 0.5 mg/dl (0-1.1) Aspartate Amino Transf (AST/SGOT) 20 IU/L (15-46) Alanine Aminotransferase (ALT/SGPT) 39 IU/L (13-69) Alkaline Phosphatase 50 IU/L (42-121) B-Type Natriuretic Peptide 108 PG/ML (0-125) Total Protein 6.1 g/dl (6.1-8.1) Albumin 3.4 g/dl (3.3-4.9) Globulin 2.70 g/dl (1.3-3.2) Albumin/Globulin Ratio 1.25 PILOSSYAN,VAGHARSHAK MD November 19, 2018 19:00
== END 2018-11-19 15:45 | disposition home or self-care (01) ==
LOC: CCL 06:54 → SDS 06:54 → CCL 12:14 → TEL 12:15
PROVIDERS: ADMIT Internal Medicine Interventional Cardiology; ATTEND Internal Medicine Interventional Cardiology
DX: T82.120A Displacement of cardiac electrode, initial encounter (principal); Y83.8 Other surgical procedures as the cause of abnormal reaction of the patient, or of later complication, without mention of misadventure at the time of the procedure; E78.5 Hyperlipidemia, unspecified; F41.9 Anxiety disorder, unspecified; M21.40 Flat foot [pes planus] (acquired), unspecified foot; N40.0 Benign prostatic hyperplasia without lower urinary tract symptoms; M54.16 Radiculopathy, lumbar region; M54.17 Radiculopathy, lumbosacral region; I25.10 Atherosclerotic heart disease of native coronary artery without angina pectoris; Z95.5 Presence of coronary angioplasty implant and graft; J44.9 Chronic obstructive pulmonary disease, unspecified; E66.9 Obesity, unspecified; Z68.37 Body mass index [BMI] 37.0-37.9, adult; B35.1 Tinea unguium; K21.9 Gastro-esophageal reflux disease without esophagitis; M25.511 Pain in right shoulder; Z79.82 Long term (current) use of aspirin; Z87.891 Personal history of nicotine dependence
CPT/HCPCS: 33270; 71045; 80053; 83880; 85025; 85610; 85730; 93005; G0378; J0690; J2250; J2270; J3010; J7030; J7040